=== PATIENT | female | born 1990 | race Caucasian/White ===

== ENCOUNTER 2016-09-01 13:15 | Emergency (ER) | payer OTHER ==
[2016-09-01 13:46] VITALS: BP 134/74
[2016-09-01] MEDS ORDERED: Albuterol/Ipratropium NEB.SOL* Albuterol 2.5 MG/Ipratropium 0.5 MG 3 ML INH ONE (14:13)
--- NOTE | 2016-09-01 14:14 | UC ---
Throat Pain/Nasal Derek HPI - HPI Summary HPI Summary: complaint of cough and runny nose that started 3 days ago non productive cough wheezing which is worse at night coughing so hard she has vomited 2x thinks she had a fever last night - denies chills sore throat ,headache denies N/D, using albuterol inhaler approx [id number] took some cherratussin last night with some relief - History of Current Complaint Chief Complaint: UCRespiratory Stated Complaint: COUGH Time Seen by Provider: 09/01/16 14:02 Hx Obtained From: Patient Hx Last Menstrual Period: 08/21/16 - Allergies/Home Medications Allergies/Adverse Reactions: Allergies Allergy/AdvReac Type Severity Reaction Status Date / Time No Known Allergies Allergy Verified 09/01/16 13:39 Home Medications: Home Medications Guaifenesin-Codeine [Cheratussin AC 100-10 mg/5Ml] 1 teasp PO PRN 09/01/16 [ History] PMH/Surg Hx/FS Hx/Imm Hx Previously Healthy: Yes Endocrine History Of: Denies: Diabetes, Thyroid Disease Cardiovascular History Of: Denies: Cardiac Disorders, Hypertension, Pacemaker/ICD, Myocardial Infarction , Congestive Heart Failure, Deep Vein Thrombosis Respiratory History Of: Reports: Asthma Denies: COPD, Pneumonia, Pulmonary Embolism GI/ History Of: Denies: Gastroesophageal Reflux, Ulcer, Renal Disease Neurological History Of: Denies: CVA, Dementia, Seizures Cancer History Of: Denies: Lung Cancer Other History Of: Negative For: Anticoagulant Therapy - Surgical History Surgical History: Yes Surgery Procedure, Year, and Place: c section 06/29/11 - Family History Known Family History: Positive: None, Hypertension - Social History Alcohol Use: None Substance Use Type: None Smoking Status (MU): Light Every Day Tobacco Smoker Type: Cigarettes Amount Used/How Often: 1/2 PPD Length of Time of Smoking/Using Tobacco: 6 YEARS Have You Smoked in the Last Year: No Household Exposure Type: Cigarettes Review of Systems Constitutional: Negative Skin: Negative Eyes: Negative ENT: Sore Throat, Nasal Discharge Respiratory: Cough Cardiovascular: Negative Gastrointestinal: Negative Genitourinary: Negative Motor: Negative Neurovascular: Negative Musculoskeletal: Negative Neurological: Negative Psychological: Negative All Other Systems Reviewed And Are Negative: Yes Physical Exam Triage Information Reviewed: Yes Appearance: No Pain Distress, Well-Nourished Vital Signs: Initial Vital Signs Temp 99.8 F 09/01/16 13:41 Pulse 109 09/01/16 13:41 Resp 20 09/01/16 13:41 BP 134/74 09/01/16 13:41 Pulse Ox 99 09/01/16 13:41 Vital Signs Reviewed: Yes Eyes: Positive: Conjunctiva Clear ENT: Positive: Pharyngeal erythema, Nasal congestion, Nasal drainage, TMs normal Neck: Positive: No Lymphadenopathy Respiratory: Positive: No respiratory distress, No accessory muscle use, Wheezing - throughout all lung owens Cardiovascular: Positive: No Murmur, Pulses Normal, Tachycardia Abdomen Description: Positive: Nontender, Soft Bowel Sounds: Positive: Present Musculoskeletal: Positive: No Edema Neurological: Positive: Alert Psychological Exam: Normal Skin Exam: Normal Re-Evaluation - Re-Evaluation First Eval Re-Evaluation Time: 14:42 Change: Improved - more air meovemnt throughout less wheezing Throat Pain/Nasal Course/Dx - Course Course Of Treatment: exam completed. wheezing throughout all lung owens. treat with duoneb - Differential Dx/Diagnosis Differential Diagnosis/HQI/PQRI: Influenza, Pharyngitis, Sinusitis, URI Provider Diagnoses: asthma exacerbation Discharge - Discharge Plan Condition: Stable Disposition: HOME Prescriptions: Albuterol HFA INHALER* [Ventolin HFA Inhaler*] 2 puff INH Q4H PRN #1 mdi PRN Reason: Wheezing Azithromycin TAB* [Zithromax TAB (Z-KADEN) 250 mg #6 tabs] 2 tab PO .TODAY, THEN 1 DAILY #1 kaden Guaifenesin-Codeine [Cheratussin AC] 10 ml PO BEDTIME #100 ml MDD 10 ml predniSONE TAB* [Deltasone TAB*] 50 mg PO DAILY #5 tab Patient Education Materials: Asthma (ED) Referrals: Nkechi Nugent MD [Primary Care Provider] - Additional Instructions: Please take antibiotic and prednisone as directed Use your albuterol inhaler every 4-6 hours when needed for wheezing, shortness of breath or uncontrolled coughing. Increase fluids and rest Take acetaminophen or ibuprofen for fever or pain Please review your discharge instructions. If your symptoms do not improve please call your primary care provider or return to urgent care.
== END 2016-09-01 15:40 | disposition home or self-care (01) ==
LOC: UCEAST 13:15
DX: J45.901 Unspecified asthma with (acute) exacerbation (principal); F17.210 Nicotine dependence, cigarettes, uncomplicated
CPT/HCPCS: 99212; A9270-GY; G0463

== ENCOUNTER 2016-10-06 11:34 | Emergency (ER) | payer OTHER ==
[2016-10-06] MEDS ORDERED: diPHENhydraMINE PO* 50 MG PO ONE (12:09)
--- NOTE | 2016-10-06 12:12 | ED ---
HPI Chest Pain - HPI Summary HPI Summary: 26F presents with anxiety since last night. She admits to chest pain and SOB. She states that she feels tingling in her upper extremities. She was diagnosed with pneumonia yesterday and was given dose of prednisone 60mg which patient states is large than has ever been given. She states she has a history of anxiety but has never had a panic attack. She states with her anxiety she always has a cause for it and that she can still perform her daily activities with it and once she takes care of the problem the anxiety resolves. She states she has no cause her anxiety currently. She denies any SI/HI. she is not on any control. She denies any pain or swelling in her calfs. She denies any history of DVTs or family history or recent travel. She is a nonsmoker. - History of Current Complaint Chief Complaint: EDGeneral Time Seen by Provider: 10/06/16 11:52 Pain Intensity: 0 - Allergy/Home Medications Allergies/Adverse Reactions: Allergies Allergy/AdvReac Type Severity Reaction Status Date / Time No Known Allergies Allergy Verified 10/06/16 11:35 PMH/Surg Hx/FS Hx/Imm Hx Endocrine/Hematology History: Denies: Hx Anticoagulant Therapy, Hx Diabetes, Hx Thyroid Disease Cardiovascular History: Denies: Hx Aneurysm, Hx Angina, Hx Angioplasty, Hx Atrial Fibrillation, Hx Auto Implanted Cardiovert Defib, Hx Cardiac Arrest, Hx Cardiomegaly, Hx Congenital Heart Disease, Hx Congestive Heart Failure, Hx Coronary Artery Disease, Hx Deep Vein Thrombosis, Hx Embolism, Hx Hypercholesterolemia, Hx Hypotension, Hx Hypertension, Hx Myocardial Infarction, Hx Pacemaker/ICD, Hx Peripheral Vascular Disease, Hx Rheumatic Fever, Hx Syncope, Hx Valvular Heart Disease, Other Cardiovascular Problems/Disorders Respiratory History: Reports: Hx Asthma, Other Respiratory Problems/Disorders - USES AND INHALER ON OCCASION Denies: Hx Bronchopulmonary Dysplasia, Hx Chronic Bronchitis, Hx Chronic Obstructive Pulmonary Disease (COPD), Hx Cystic Fibrosis, Hx Lung Cancer, Hx Pleural Effusion, Hx Pneumonia, Hx Pulmonary Edema, Hx Pulmonary Embolism, Hx Seasonal Allergies, Hx Sleep Apnea GI History: Denies: Hx Ulcer History: Denies: Hx Renal Disease Neurological History: Denies: Hx Dementia, Hx Seizures Psychiatric History: Denies: Hx Substance Abuse - Surgical History Surgery Procedure, Year, and Place: c section 06/29/11 Infectious Disease History: No Infectious Disease History: Denies: Hx Clostridium Difficile, Hx Hepatitis, Hx Human Immunodeficiency Virus (HIV), Hx of Known/Suspected MRSA, Hx Shingles, Hx Tuberculosis, History Other Infectious Disease, Traveled Outside the [place] in Last 30 Days - Family History Known Family History: Positive: None, Hypertension - Social History Alcohol Use: None Hx Substance Use: No Substance Use Type: Reports: None Smoking Status (MU): Light Every Day Tobacco Smoker Type: Cigarettes Amount Used/How Often: 1/2 PPD Length of Time of Smoking/Using Tobacco: 6 YEARS Have You Smoked in the Last Year: No Review of Systems Positive: Chest Pain Positive: Shortness Of Breath Negative: Abdominal Pain Positive: Other - tingling in extermities Negative: Headache All Other Systems Reviewed And Are Negative: Yes Physical Exam Triage Information Reviewed: Yes Vital Signs On Initial Exam: Initial Vitals Temp Pulse Resp BP Pulse Ox 96.0 F 106 20 129/83 99 10/06/16 11:35 10/06/16 11:35 10/06/16 11:35 10/06/16 11:35 10/06/16 11:35 Vital Signs Reviewed: Yes Appearance: Positive: Well-Appearing Skin: Positive: Warm, Dry Head/Face: Positive: Normal Head/Face Inspection Eyes: Positive: Normal, Conjunctiva Clear Respiratory/Lung Sounds: Positive: Breath Sounds Present, Other - consilodation present in right lower lung Cardiovascular: Positive: Normal, RRR Abdomen Description: Positive: Nontender, Soft Bowel Sounds: Positive: Present Neurological: Positive: Sensory/Motor Intact, Alert, Oriented to Person Place, Time, CN Intact II-III - Terrence Coma Scale Best Eye Response: 4 - Spontaneous Best Motor Response: 6 - Obeys Commands Best Verbal Response: 5 - Oriented Coma Scale Total: 15 Diagnostics - Vital Signs Vital Signs Temp Pulse Resp BP Pulse Ox 10/06/16 11:35 96.0 F 106 20 129/83 99 - Laboratory Result Diagrams: 10/06/16 12:18 10/06/16 12:18 Lab Statement: Any lab studies that have been ordered have been reviewed, and results considered in the medical decision making process. - EKG No standard instances Cardiac Rate: NL EKG Rhythm: Sinus Rhythm ST Segment: Normal Re-Evaluation - Re-Evaluation First Eval Change: Improved Comment: still feels heart racing but other symptoms resolved Chest Pain Course/Dx - Course Course Of Treatment: 26F presents with anxiety like symptoms. c/o of SOB, chest pain, and tingling in extremities. says that never had anxiety attack before. was dx with pneumonia yesterday and given 60 mg prednisone. labs and EKG normal. d-dimer normal. do still here some consildation on exam of lungs. gave bendaryl and patient says feels a better but still feels that heart is racing. states that has not been eatting well due to illness but has been drinking. vitals HR 90 discussed could be anxiety or dehydrated related. patient states that is able to drink so will have drink fluids oral. discussed since drove and patient wants something more can give ativan to go home with to split in half. told to stop prednisone and to continue bendaryl every 6 hours. told to follow up with primary. patient understands and agrees with plan - Chest Pain Differential Diagnosis/HQI/PQRI: Acute OK, Lower Respiratory Infection, Pulmonary Embolism, Other: - anxiety - Diagnoses Provider Diagnoses: Anxiety Discharge - Discharge Plan Condition: Good Disposition: HOME Patient Education Materials: Anxiety (ED) Referrals: Nkechi Nugent MD [Primary Care Provider] - Additional Instructions: Take half Ativan pill at home and can use other in 6 hours Continue Benadryl every 6 hours until symptoms resolve Stop taking prednisone Continue antibiotic Drink fluids as tolerated Follow up with primary care physician within 5 days Return to ED if develop suicidal or homicidal thoughts any new or worsening symptoms
[2016-10-06 12:30] VITALS: BP 119/81
[2016-10-06 12:30] LABS: Add Diff/Slide Review? Slide Review Added; Comments Flag Yes; Hematocrit 42 % (35-47); Hemoglobin 14.2 g/dl (12.0-16.0); Mean Corpuscular HGB Conc 34 g/dl (31-36); Mean Corpuscular Hemoglobin 31 pg (27-31); Mean Corpuscular Volume 93 fL (80-97); Mean Platelet Volume 9 um3 (7.4-10.4); Red Blood Count 4.54 10^6/ul (4.0-5.4); Red Cell Distribution Width 14 % (10.5-15); White Blood Count 3.4 10^3/ul (3.5-10.8)
[2016-10-06 12:50] LABS: Albumin 4.2 g/dL (3.2-5.2); BUN/Creatinine Ratio 26.2 (8-20); Calcium 9.4 mg/dL (8.6-10.3); EGFR African American 152.5 (>60); EGFR Non-African American 118.6 (>60); Globulin 2.7 g/dL (2-4); Potassium 3.4 mmol/L (3.5-5.0); Total Bilirubin 0.3 mg/dL (0.2-1.0); Total Protein 6.9 g/dL (6.4-8.9)
[2016-10-06] MEDS ORDERED: LORazepam TAB(*) 1 MG PO ONE ×2 (13:11→13:21)
== END 2016-10-06 13:28 | disposition home or self-care (01) ==
LOC: ED 11:34
DX: F41.9 Anxiety disorder, unspecified (principal); R06.02 Shortness of breath; R07.9 Chest pain, unspecified; F17.210 Nicotine dependence, cigarettes, uncomplicated
CPT/HCPCS: 36415; 80053; 84484; 85025; 85379; 93005; 99283; A9270-GY

== ENCOUNTER 2017-11-07 09:29 | Inpatient (IN) | payer OTHER ==
[2017-11-07] MEDS ORDERED: NS 0.9% 1000 ML* 1,000 ML IV ONE (09:31)
[2017-11-07] MEDS ORDERED: Alteplase* 50 MG VIAL IV ONE ×2 (10:01→10:02)
--- NOTE | 2017-11-07 10:02 | RAD ---
HISTORY: Neurological changes, code duvall, left-sided weakness, left-sided facial tingling COMPARISONS: August 21, 2013 TECHNIQUE: Multiple contiguous axial CT scans were obtained of the head without intravenous contrast. FINDINGS: HEMORRHAGE/INFARCT: There is no hemorrhage or acute infarct. MASSES/SHIFT: There is no mass or shift. EXTRA-AXIAL SPACES: There are no extra-axial fluid collections. SULCI AND VENTRICLES: The sulci and ventricles are normal in size and position for the patient's stated age. CEREBRUM: There are no focal parenchymal abnormalities. BRAINSTEM: There are no focal parenchymal abnormalities. CEREBELLUM: There are no focal parenchymal abnormalities. VESSELS: The vessels are grossly normal. PARANASAL SINUSES: The paranasal sinuses are clear. ORBITS: The orbits are unremarkable. BONES AND SOFT TISSUE: No bone or soft tissue abnormalities are noted. OTHER: None IMPRESSION: NO ACUTE INTRACRANIAL PATHOLOGY. PRELIMINARY FINDINGS WERE DISCUSSED WITH DR. KIRKLAND AT APPROXIMATELY 9:59 AM ON NOVEMBER 07, 2017.
[2017-11-07 10:10] LABS: ABS Basophils 0 10^3/ul (0-0.2); ABS Eosinophils 0.2 10^3/ul (0-0.6); ABS Lymphocytes 1.3 10^3/ul (1.0-4.8); ABS Monocytes 0.3 10^3/ul (0-0.8); ABS Nucleated RBC 0 10^3/ul; Eosinophil % 4.6 % (0-6); Hematocrit 41 % (35-47); Hemoglobin 14.1 g/dl (12.0-16.0); Lymphocyte % 27.2 % (25-47); Mean Corpuscular HGB Conc 34 g/dl (31-36); Mean Corpuscular Hemoglobin 33 pg (27-31); Mean Corpuscular Volume 96 fL (80-97); Mean Platelet Volume 8.1 um3 (7.4-10.4); Nucleated Red Blood Cells % 0.1; Platelet Count 180 10^3/ul (150-450); Red Blood Count 4.29 10^6/ul (4.0-5.4); Red Cell Distribution Width 13 % (10.5-15); White Blood Count 4.9 10^3/ul (3.5-10.8)
[2017-11-07 10:20] LABS: INR 0.85 (0.77-1.02)
[2017-11-07 10:33] LABS: EGFR Non-African American 115.5 (>60)
[2017-11-07] MEDS ORDERED: Iohexol 350* (CONTRAST) 500 ML MDV IV ONE (10:36)
[2017-11-07] MEDS ORDERED: LORazepam INJ* 2 MG/ML 1 ML VIAL IV ONE (10:40)
[2017-11-07 11:04] LABS: Urine Appearance Clear; Urine Blood Negative (Negative); Urine Color Straw; Urine Ketones Negative (Negative); Urine Protein Negative (Negative); Urine Specific Gravity 1.005 (1.010-1.030); Urine Urobilinogen Negative (Negative)
--- NOTE | 2017-11-07 11:11 | RAD ---
INDICATION: 27-year-old. Neurologic change. Code miller COMPARISON: Chest x-ray August 29, 2013 TECHNIQUE: An AP portable view obtained at 1050 hours is submitted. FINDINGS: Bones/Soft Tissues: There are no acute bony findings. Cardiomediastinal: The cardiomediastinal silhouette is normal. Lungs: There are no infiltrates. Pleura: There are no pleural effusions. Other: None IMPRESSION: NO ACTIVE DISEASE
--- NOTE | 2017-11-07 11:49 | RAD ---
HISTORY: Left face, leg weakness COMPARISONS: None TECHNIQUE: Multiple contiguous axial CT scans were obtained of the head and neck after the administration of nonionic intravenous contrast timed to the systemic arterial phase of contrast enhancement. Coronal and sagittal multiplanar reformations are submitted for review. Multiple 3-D maximum intensity projection reconstructions are also submitted for review. FINDINGS: Evaluation is somewhat limited by streak artifact from metallic jewelry in the patient's ears bilaterally. CTA NECK: AORTIC ARCH: There is a normal three-vessel branching pattern of the aortic arch. There is no ostial or proximal stenosis of the cephalic great vessels. RIGHT VERTEBRAL ARTERY: The right vertebral artery is patent along its course, without stenosis. LEFT VERTEBRAL ARTERY: The left vertebral artery is patent along its course, without stenosis. DOMINANCE: The vertebral arteries are codominant. RIGHT COMMON CAROTID ARTERY: The right common carotid artery is patent. The right carotid bifurcation occurs at C3-C4 RIGHT INTERNAL CAROTID ARTERY: There is no right internal carotid artery stenosis by NASCET criteria. RIGHT EXTERNAL CAROTID ARTERY: The right external carotid artery is unremarkable. LEFT COMMON CAROTID ARTERY: The left common carotid artery is patent. The left carotid bifurcation occurs at C3-C4 LEFT INTERNAL CAROTID ARTERY: There is no left internal carotid artery stenosis by NASCET criteria. LEFT EXTERNAL CAROTID ARTERY: The left external carotid artery is unremarkable. VENOUS CIRCULATION: The venous system is unremarkable. SALIVARY GLANDS: The parotid glands, submandibular glands, sublingual glands are normal. NASAL CAVITY/NASOPHARYNX: The nasal cavity and nasopharynx are normal. ORAL CAVITY/OROPHARYNX: The oral cavity is obscured by streak artifact from dental amalgam. The visualized oral cavity and oropharynx are unremarkable. LARYNGEAL APPARATUS/HYPOPHARYNX: The laryngeal apparatus and hypopharynx are normal. UPPER AIRWAY/UPPER ESOPHAGUS: The visualized upper airway and esophagus are normal. LUNG APICES: The lung apices are clear. THYROID GLAND: The thyroid gland is normal. LYMPH NODES: There is no lymphadenopathy by size criteria. BONES AND SOFT TISSUES: No bone or soft tissue abnormalities are noted. CTA HEAD: INTRACRANIAL CIRCULATION: There is a branch occlusion of an M3 branch of the right middle cerebral artery at the level of the precentral gyrus. Elsewhere, there is no aneurysm, vascular malformation, occlusion, or stenosis of the visualized intracranial circulation. The anterior communicating artery complex is clear. Bilateral posterior communicating arteries are identified. VENOUS CIRCULATION: The venous system is unremarkable. PERFUSION: There is hypoperfusion of the right posterior frontal lobe corresponding to the anterior branch occlusion including the right precentral gyrus. HEMORRHAGE/INFARCT: There is no hemorrhage or acute infarct. MASSES/SHIFT: There is no mass or shift. EXTRA-AXIAL SPACES: There are no extra-axial fluid collections. SULCI AND VENTRICLES: The sulci and ventricles are normal in size and position for the patient's stated age. CEREBRUM: There are no focal parenchymal abnormalities. BRAINSTEM: There are no focal parenchymal abnormalities. CEREBELLUM: There are no focal parenchymal abnormalities. PARANASAL SINUSES: There is mucosal thickening of the ethmoid air cells. ORBITS: The orbits are unremarkable. BONES AND SOFT TISSUE: No bone or soft tissue abnormalities are noted. OTHER: There is no abnormal enhancement. IMPRESSION: 1. 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 2. NO INTERNAL CAROTID ARTERY STENOSIS BY NASCET CRITERIA. 3. PRELIMINARY FINDINGS WERE DISCUSSED WITH DR. KIRKLAND IN THE EMERGENCY DEPARTMENT AT APPROXIMATELY 11:41 AM ON NOVEMBER 07, 2017 CPT II Codes: 3100F
[2017-11-07] MEDS ORDERED: Ondansetron INJ* 2 MG/ML VIAL IV ONE (12:02)
[2017-11-07] MEDS ORDERED: Morphine VIAL* 10 MG/ML 1 ML VIAL IV ONE (12:43)
[2017-11-07] MEDS ORDERED: Morphine VIAL* 4 MG/ML VIAL (1 ml vial) IV ONE (12:44)
[2017-11-07] MEDS ORDERED: Morphine INJ* 2 MG/ML 1 ML CARPUJECT IV ONE (13:18)
--- NOTE | 2017-11-07 13:39 | HP ---
H&P (Free Text) History and Physical: History and Physical - Critical Care Requesting Physician: Dr King Barrientos Reason for consult: CVA, post tpa Limitations in history/physical: none Date of consult: 11/07/2017 HPI: 27y F pmhx of Migraines; Woke up at ~8am this morning, feeling well. Shortly after developed headaches, some dizziness. She felt left arm was weak and numbness and could not move it. She felt she could not stand and even fell at home. She texted her sister, who then called and her sister noticed she had slurry speech. Family came to her home before 930 and noticed she could not stand and was not moving her left arm and her speech was slurred. EMS called, taken to ER. Found to have NIH score of 7. CT head STAT done not showing acute findings. CTA brain demonstrating Right middle cerebral artery occlusion at level of M3 with hypoperfusion of right posterior frontal lobe. Neurology was consulted. Patient was deemed a tPA candidate. [facility] was called and they recommended no intervention due to small distal clot. Patient was given tPA at ~1022. Currently she in bed, no distress. She is worried, has headaches. Current NSR 90s, BP 160/104. On RA, sat 99%. She has some dysarthria noted. Left upper extremity feels weak and numb still. Left leg feels heavy but able to move it more. No CP/SOB/n/v/abd pain. No blurry vision.She reports use of OCPs for months now. She also reports 1ppd smoking for years now. Social alcohol use. No prior medical problems. Taken medications for migraines, unclear at this time. No other cardiac problem in family. ED/floor Course: as above ROS: negative except for pertinent positives mentioned above. PMHx: Migraines PSHx: none Family History: Hypertension Social History: Alcohol-social, Smoking-1ppd for 6 years, Drug use-none; lives alone Allergies: NKDA Home Medications: Ascorbic Acid/Vitamin E/Biotin [Hair Skin Nails-Biotin Gummies] 1 tab PO DAILY 10/29/17 [History Confirmed 11/07/17] Norethindrone-E.estradiol-Iron [Blisovi Fe 1-20 Tablet] 1 tab PO DAILY 10/29/17 [History Confirmed 11/07/17] Tele: NSR Vitals: Vital Signs Temp 98.8 F 11/07/17 09:51 Pulse 97 11/07/17 13:34 Resp 25 11/07/17 13:34 BP 182/115 11/07/17 13:34 Pulse Ox 98 11/07/17 13:34 Intake & Output 11/06/17 11/07/17 11/07/17 18:59 06:59 18:59 Weight 125 lb O2/Vent: RA Infusions: heplock Current Medications: Atorvastatin Calcium (Lipitor*) 80 mg PO 1700 TAYLOR Nicardipine/Sodium Chloride (Cardene 0.1mg/Ml Ivpremix*) 20 mg in 200 mls @ 50 mls/hr IV .(as Initial Rate) TAYLOR; 5 MG/HR PRN Reason: Protocol Physical Exam: General: awake, alert, anxious, no diaphoresis Head: normocephalic, atraumatic HEENT: no pallor, no icterus, moist mucous membranes Neck: soft, supple, no jvd, no stridor CVS: normal rate, regular, no murmur Resp: bilateral air entry, no rhales, no wheeze, no rhonchi, no acc muscle use Abdomen: soft, nontender, nondistended, bowel sounds present Ext: pulses+, warm, no edema Skin: intact, no breakdown, no dryness Neuro: awake, alert, orientedx3, left lower facial droop+, left upper ext 1/5 strength, left lower ext unable to hold with gravity for long 4/5, left arm numbness, pupils bilaterally reactive Labs: Laboratory Results - last 24 hr 11/07/17 11/07/17 11/07/17 08:50 08:50 08:50 WBC 4.9 RBC 4.29 Hgb 14.1 Hct 41 MCV 96 MCH 33 H MCHC 34 RDW 13 Plt Count 180 MPV 8.1 Neut % (Auto) 61.4 Lymph % (Auto) 27.2 Cook % (Auto) 5.9 Eos % (Auto) 4.6 Baso % (Auto) 0.9 Absolute Neuts (auto) 3.0 Absolute Lymphs (auto) 1.3 Absolute Monos (auto) 0.3 Absolute Eos (auto) 0.2 Absolute Basos (auto) 0 Absolute Nucleated RBC 0 Nucleated RBC % 0.1 INR (Anticoag Therapy) 0.85 APTT 26.9 Sodium 140 Potassium 3.8 Chloride 111 Carbon Dioxide 22 Anion Gap 7 BUN 14 Creatinine 0.62 Est GFR ( Amer) 148.5 Est GFR (Non-Af Amer) 115.5 BUN/Creatinine Ratio 22.6 H Glucose 91 POC Glucose (mg/dL) Lactic Acid Calcium 8.9 Total Bilirubin 0.50 AST 21 ALT 22 Alkaline Phosphatase 62 Troponin I 0.00 Total Protein 6.4 Albumin 3.9 Globulin 2.5 Albumin/Globulin Ratio 1.6 Triglycerides 92 Cholesterol 182 LDL Cholesterol 112 HDL Cholesterol 51.3 Beta HCG, Quant < 0.60 Urine Color Urine Appearance Urine pH Ur Specific [place] Urine Protein Urine Ketones Urine Blood Urine Nitrate Urine Bilirubin Urine Urobilinogen Ur Leukocyte Esterase Urine Glucose Blood Type Antibody Screen 11/07/17 11/07/17 11/07/17 08:50 08:50 09:56 WBC RBC Hgb Hct MCV MCH MCHC RDW Plt Count MPV Neut % (Auto) Lymph % (Auto) Cook % (Auto) Eos % (Auto) Baso % (Auto) Absolute Neuts (auto) Absolute Lymphs (auto) Absolute Monos (auto) Absolute Eos (auto) Absolute Basos (auto) Absolute Nucleated RBC Nucleated RBC % INR (Anticoag Therapy) APTT Sodium Potassium Chloride Carbon Dioxide Anion Gap BUN Creatinine Est GFR ( Amer) Est GFR (Non-Af Amer) BUN/Creatinine Ratio Glucose POC Glucose (mg/dL) 105 H Lactic Acid 1.1 Calcium Total Bilirubin AST ALT Alkaline Phosphatase Troponin I Total Protein Albumin Globulin Albumin/Globulin Ratio Triglycerides Cholesterol LDL Cholesterol HDL Cholesterol Beta HCG, Quant Urine Color Urine Appearance Urine pH Ur Specific [place] Urine Protein Urine Ketones Urine Blood Urine Nitrate Urine Bilirubin Urine Urobilinogen Ur Leukocyte Esterase Urine Glucose Blood Type O Positive Antibody Screen Negative 11/07/17 10:48 WBC RBC Hgb Hct MCV MCH MCHC RDW Plt Count MPV Neut % (Auto) Lymph % (Auto) Cook % (Auto) Eos % (Auto) Baso % (Auto) Absolute Neuts (auto) Absolute Lymphs (auto) Absolute Monos (auto) Absolute Eos (auto) Absolute Basos (auto) Absolute Nucleated RBC Nucleated RBC % INR (Anticoag Therapy) APTT Sodium Potassium Chloride Carbon Dioxide Anion Gap BUN Creatinine Est GFR ( Amer) Est GFR (Non-Af Amer) BUN/Creatinine Ratio Glucose POC Glucose (mg/dL) Lactic Acid Calcium Total Bilirubin AST ALT Alkaline Phosphatase Troponin I Total Protein Albumin Globulin Albumin/Globulin Ratio Triglycerides Cholesterol LDL Cholesterol HDL Cholesterol Beta HCG, Quant Urine Color Straw Urine Appearance Clear Urine pH 7.0 Ur Specific [place] 1.005 L Urine Protein Negative Urine Ketones Negative Urine Blood Negative Urine Nitrate Negative Urine Bilirubin Negative Urine Urobilinogen Negative Ur Leukocyte Esterase Negative Urine Glucose Negative Blood Type Antibody Screen Imaging: CT brain 11/07 - reviewed CTA brain 11/07 - right M3 occlusion CXR 11/07 - no acute disease, cardiac silhouetter intact Assessment: 27y F pmhx of Migraines; Woke up at ~8am this morning, feeling well. Shortly after developed headaches, some dizziness. She felt left arm was weak and numbness and could not move it. She felt she could not stand and even fell at home. She texted her sister, who then called and her sister noticed she had slurry speech. Family came to her home before 930 and noticed she could not stand and was not moving her left arm and her speech was slurred. EMS called, taken to ER. Found to have NIH score of 7. CT head STAT done not showing acute findings. CTA brain demonstrating Right middle cerebral artery occlusion at level of M3 with hypoperfusion of right posterior frontal lobe. Neurology was consulted. Patient was deemed a tPA candidate. [facility] was called and they recommended no intervention due to small distal clot. Patient was given tPA at ~1022. -Right MCA Ischemic CVA, s/p tPA 11/07 history of OCP use tobacco abuse migraines Plan: Neuro- s/p tpa at 1022 for right MCA occlusion. bleeding precautions. neurochecks as per protocol. maintain SBP <180 and DBP <105, start nicardipine infusio 5mg/hr to meet goals. ASA to be started tomorrow >24 hours. Statin PO. Repeat CT brain in 24 hours or if any acute neuro status change. Bed rest. Swallow/speech eval in AM. Suspect etiology of CVA multifactorial from OCP use + smoking, r/o PFO, obtain LE duplex to r/o dvt. will ask her about cancer screening also. CVS- BP elevated post stroke, maintain post tpa guidlines for BP, goal <180/ 105. Start Cardene infusion. ASA tomorrow. Bleeding prec/monitoring. Resp- RA, no distress ID- afebrile. wbc normal. no abx indicated. GI- prn zofran for nausea. swallow eval in AM. Renal- Cr okay. K okay, no acidosis. Heme- hg okay. bleeding prec post tpa. ASA tomorrow. Endo- check hba1c in AM. Lipid panel reviewed. Musculsk- bedrest strict. Wounds- none Nutrition- swallow eval in AM. NPO for now. DVT prophylaxis: SCDs GI prophylaxis: - Central Line: - Arterial Line: - Guthrie Cathetor: - Disposition: ICU post tpa Code Status: full code Total Critical Care time is 60 minutes, excluding procedures/teaching Lars Garsia MD [employer] (Electronically Signed)
[2017-11-07] MEDS ORDERED: niCARdipine 0.1MG/ML IVPREMIX* 20 MG/200 ML BAG IV SCH (14:00)
[2017-11-07] MEDS ORDERED: PREMIX* 0 ML with Acetaminophen IV 1GM/100ML * 1,000 MG IVPB ONE ×2 (16:21)
[2017-11-07] MEDS ORDERED: ACETAMINOPHEN IVPB ONE ×2 (16:30)
--- NOTE | 2017-11-07 16:37 | RAD ---
INDICATION: CVA, evaluate for deep venous thrombosis. COMPARISON: There are no prior studies available for comparison. TECHNIQUE: Multiple real-time, color flow and Doppler tracings of both lower extremities were obtained. FINDINGS: The common femoral, femoral, profunda femoral and popliteal veins all demonstrate normal compressibility, augmentation with compression and phasic response with respiration. The posterior tibial and peroneal veins demonstrate normal compressibility and augmentation with compression. IMPRESSION: NO EVIDENCE FOR DEEP VENOUS THROMBOSIS.
--- NOTE | 2017-11-07 17:32 | ECHO ---
Patient: BANDAR ARMAS [facility] Rec#: [id number] : 1990 Date: 11/07/2017 Age: 27y Height: 162.56 cm / 64.0 in Weight: 56.7 kg / 125.0 lbs Sex: F BSA: 1.6 Room#: [facility] Admit Date#: 11/07/2017 Type: Inpatient Referring: Lars Garsia Reading: Paola Campo MD Innersole Maker: Kristie Rueda MANDA CC: Nkechi Nugent MD Transthoracic Echocardiogram Indication: CVA BP: 182/115 HR: 97 Rhythm: NSR Findings History: CVA, smoker. Technical Comments: The study quality is good. Completed at 1537. Left Ventricle: The left ventricular chamber size is normal. Septal wall hypertrophy is observed. The left ventricle appears hyperdynamic. The estimated ejection fraction is 60-65%. Normal left ventricular diastolic filling is observed. Left Atrium: The left atrial chamber size is normal. Right Ventricle: The right ventricular cavity size is normal. The right ventricular global systolic function is normal. Right Atrium: The right atrial cavity size is normal. A prominent eustachian valve is noted in the right atrium. A patent foramen ovale is demonstrated by agitated contrast. Negative contrast in right atrium, many bubbles cross into the left heart early after injection and persist in crossing. There is evidence of an atrial septal aneurysm. Aortic Valve: The aortic valve is trileaflet. There is no evidence of aortic valve thickening. There is no evidence of aortic regurgitation. There is no evidence of aortic stenosis. Mitral Valve: The mitral valve leaflets are mildly thickened. There is a trace of mitral regurgitation. There is no evidence of mitral stenosis. Tricuspid Valve: The tricuspid valve leaflets are normal. There is no evidence of tricuspid valve regurgitation. Unable to estimate the right ventricular systolic pressure. There is no tricuspid stenosis. Pulmonic Valve: The pulmonic valve appears normal. There is a trace pulmonic regurgitation. There is no pulmonic stenosis. Pericardium: The pericardium appears normal. Aorta: There is no dilatation of the ascending aorta. There is no dilatation of the aortic arch. There is no dilation of the aortic root. Pulmonary Artery: The main pulmonary artery appears normal. Venous: The inferior vena cava appears normal in size. There is a greater than 50% respiratory change in the inferior vena cava dimension. Contrast: Normal saline was used as contrast for the bubble study. Intravenous contrast was used to help determine presence of intracardiac shunting. Conclusions The left ventricle appears hyperdynamic with normal wall motion. The estimated ejection fraction is 60-65%. The right ventricular global systolic function is normal. A patent foramen ovale is demonstrated by agitated contrast with negative contrast in right atrium and many bubbles cross into the left atrlum early after injection and persist in crossing in the region of the foraman ovale. Aneurismal intra atrial septum and prominent Eustation valve noted as well. There is a trace of mitral regurgitation. No prior echo to compare. Measurements Name Value Normal Range RVIDd (AP) 2D 2.2 cm (0.9 - 2.6) RVDdMajor (2D) 2.8 cm (2.2 - 4.4) RAd ISD 4CH 3.7 cm (3.4 - 4.9) RA (A4C)W 2.9 cm (2.9 - 4.6) IVSd (2D) 1.2 cm (0.6 - 1) LVPWd (2D) 0.9 cm (0.6 - 1) LVIDd (2D) 3.7 cm (3.6 - 5.4) LVIDs (2D) 2.9 cm - LV FS (2D) 22 % (25 - 45) Aortic Annulus 1.7 cm (1.4 - 2.6) Ao root diameter (2D) 2.7 cm (2.1 - 3.5) Ascending Ao 2.7 cm (2.1 - 3.4) Aortic arch 1.7 cm (1.8 - 3.4) Descending Ao 1.2 cm - LA dimension (AP) 2D 3 cm (2.3 - 3.8) LAd ISD 4CH 4.1 cm (2.9 - 5.3) LA ISD 4CH W 3.1 cm (2.5 - 4.5) Name Value Normal Range LA ESV SP 4CH (A/L) 21 ml - LA ESV SP 2CH (A/L) 62 ml - LA ESV BP (A/L) 39 ml - LA ESV BP (A/L) index 24.64 ml/m2 - LA ESV SP 4CH (MOD) 19 ml - LA ESV SP 2CH (MOD) 55 ml - Name Value Normal Range MV E-wave Vmax 1.2 m/sec - MV deceleration time 107 msec - MV A-wave Vmax 0.9 m/sec - MV E:A ratio 1.3 ratio - LV septal e' Vmax 0.12 m/sec - LV lateral e' Vmax 0.19 m/sec - LV E:e' septal ratio 10 ratio - LV E:e' lateral ratio 6.31 ratio - Name Value Normal Range AV Vmax 1.8 m/sec - AV VTI 31.4 cm - AV peak gradient 21.65 mmHg - AV mean gradient 6.29 mmHg - LVOT Vmax 1.2 m/sec - LVOT VTI 23.6 cm - LVOT peak gradient 5.82 mmHg - LVOT mean gradient 2.41 mmHg - Name Value Normal Range IVC diameter 1.2 cm - Name Value Normal Range PV Vmax 1.3 m/sec - PV peak gradient 7.19 mmHg -
[2017-11-07] MEDS ORDERED: Acetaminophen IV 1GM/100ML * 100 ML ONE (18:07)
[2017-11-07 18:17] VITALS: BP 120/78
--- NOTE | 2017-11-07 18:17 | RAD ---
INDICATION: CVA. COMPARISON: Correlation is made with a prior CT of the brain and CT angiogram of the head and neck from November 07, 2017. TECHNIQUE: Sagittal T1, axial T1, T2, susceptibility, FLAIR and diffusion weighted images were obtained. FINDINGS: The ventricles, cisterns and sulci appear to be within normal limits. There is mild increased signal intensity present within the cortex and subcortical white matter on T2-weighted images in the right temporal lobe. There is an area of larger restricted diffusion involving a moderate size area of the right temporal lobe extending into the adjacent parietal lobe. No significant mass effect is seen. No hemorrhage is seen. The visualized portion of the paranasal sinuses and mastoid air cells appear clear.. The results of this exam were called to the referring clinician. IMPRESSION: FINDINGS MOST CONSISTENT WITH AN ACUTE NONHEMORRHAGIC RIGHT MIDDLE CEREBRAL ARTERY INFARCT DESCRIBED.
--- NOTE | 2017-11-07 18:35 | PN ---
Progress Note - Progress Note Date of Service: 11/07/17 Note: On Nicardipine, BP down to 140s and drip stopped. Has remained in 130-140 range now, tachycardic 110s sinus. Awake, anxious. headache+ Still has left arm 0/5 with only mild finger movement only. Left leg 4/5 strength persistent left lower facial droop dysarthria+ no resp distress otherwise MRI brain with right nonhemorrhagic infarct in temporal lobe extending to parietal lobe with mild cortical edema and no shift. ECHO results with positive bubble study and right to left movement of agitated saline in under 5 beats; consistent with a PFO/ASD. LV function intact. No visualized vegetations on TTE. LE duplex negative for DVT. she is s/p tPA, no bleeding noted. No improvement in symptoms yet but according to neurologist examination seems worse than when he saw her. She may be slightly worse than my original examination when I saw her within 2 hours post tPA. Discussion with patient and friends at bedside. Discussion with [facility] neurologist. Decision was to transfer patient for further possible neurointerventional assessment if worsening symptoms and even PFO closure at some point when bleeding risk lower. We now know her RF are elevated given history of OCP use, Tobacco use, and now Atrial septal defect/ PFO being found. Patient to be transferred to [facility] . Lars Garsia MD [employer]
--- NOTE | 2017-11-07 19:54 | ED ---
Bette Everett Gabriel, scribed for King Kirkland MD on 11/07/17 at 1007 . Neurological HPI - HPI Summary HPI Summary: This patient is a 27 year old F BIBA to [facility] with a chief complaint of a possible CVA that began at 0830, 1 hour [employer]LE[employer]. Patient reports left sided weakness , anxiety, and left sided decreased facial sensitivity. Patient denies MURILLO. Pt is a smoker - History of Current Complaint Chief Complaint: EDNeurologicalDeficit Stated Complaint: CODE MARINO Time Seen by Provider: 11/07/17 09:31 Hx Obtained From: Patient Hx Last Menstrual Period: 2 wks ago Onset/Duration: Still Present Timing: Constant Onset Severity: Moderate Current Severity: Moderate Neurological Deficit Location: Facial, LUE, LLE Pain Intensity: 0 Pain Scale Used: 0-10 Numeric Associated Signs and Symptoms: Positive: Weakness. Negative: Headache - Allergy/Home Medications Allergies/Adverse Reactions: Allergies Allergy/AdvReac Type Severity Reaction Status Date / Time No Known Allergies Allergy Verified 10/29/17 16:35 PMH/Surg Hx/FS Hx/Imm Hx Endocrine/Hematology History: Denies: Hx Anticoagulant Therapy, Hx Diabetes, Hx Thyroid Disease Cardiovascular History: Denies: Hx Aneurysm, Hx Angina, Hx Angioplasty, Hx Atrial Fibrillation, Hx Auto Implanted Cardiovert Defib, Hx Cardiac Arrest, Hx Cardiomegaly, Hx Congenital Heart Disease, Hx Congestive Heart Failure, Hx Coronary Artery Disease, Hx Deep Vein Thrombosis, Hx Embolism, Hx Hypercholesterolemia, Hx Hypotension, Hx Hypertension, Hx Myocardial Infarction, Hx Pacemaker/ICD, Hx Peripheral Vascular Disease, Hx Rheumatic Fever, Hx Syncope, Hx Valvular Heart Disease, Other Cardiovascular Problems/Disorders Respiratory History: Reports: Hx Asthma, Other Respiratory Problems/Disorders - USES AND INHALER ON OCCASION Denies: Hx Bronchopulmonary Dysplasia, Hx Chronic Bronchitis, Hx Chronic Obstructive Pulmonary Disease (COPD), Hx Cystic Fibrosis, Hx Lung Cancer, Hx Pleural Effusion, Hx Pneumonia, Hx Pulmonary Edema, Hx Pulmonary Embolism, Hx Seasonal Allergies, Hx Sleep Apnea GI History: Denies: Hx Ulcer History: Denies: Hx Renal Disease Neurological History: Denies: Hx Dementia, Hx Seizures Psychiatric History: Denies: Hx Substance Abuse - Surgical History Surgery Procedure, Year, and Place: C section 06/29/11 Infectious Disease History: No Infectious Disease History: Denies: Hx Clostridium Difficile, Hx Hepatitis, Hx Human Immunodeficiency Virus (HIV), Hx of Known/Suspected MRSA, Hx Shingles, Hx Tuberculosis, History Other Infectious Disease, Traveled Outside the [place] in Last 30 Days - Family History Known Family History: Positive: None, Hypertension - Social History Alcohol Use: Rare Hx Substance Use: No Substance Use Type: Reports: None Smoking Status (MU): Light Every Day Tobacco Smoker Type: Cigarettes Amount Used/How Often: 1/2 PPD Length of Time of Smoking/Using Tobacco: 6 YEARS Have You Smoked in the Last Year: No Review of Systems Neurological: Other - left sided decreased facial sensitivity. Positive: Weakness. Negative: Headache Positive: Anxious All Other Systems Reviewed And Are Negative: Yes Physical Exam - Summary Physical Exam Summary: General: well-appearing, no pain distress Skin: warm, color reflects adequate perfusion, dry Head: normal Eyes: EOMI, ORTIZ ENT: normal Neck: supple, nontender Respiratory: CTA, breath sounds present Cardiovascular: RRR Abdomen: soft, nontender Bowel: present Musculoskeletal: normal, strength/ROM intact Psychological: affect/mood appropriate Triage Information Reviewed: Yes Vital Signs On Initial Exam: Initial Vitals Temp Pulse Resp BP Pulse Ox 98.8 F 91 40 141/90 98 11/07/17 09:51 11/07/17 09:51 11/07/17 09:51 11/07/17 09:51 11/07/17 09:51 Vital Signs Reviewed: Yes Diagnostics - Vital Signs Vital Signs Temp Pulse Resp BP Pulse Ox 11/07/17 09:51 98.8 F 91 40 141/90 98 - Laboratory Lab Results: Lab Results 11/07/17 11/07/17 11/07/17 Range/Units 08:50 08:50 08:50 WBC 4.9 (3.5-10.8) 10^3/ul RBC 4.29 (4.0-5.4) 10^6/ul Hgb 14.1 (12.0-16.0) g/dl Hct 41 (35-47) % MCV 96 (80-97) fL MCH 33 H (27-31) pg MCHC 34 (31-36) g/dl RDW 13 (10.5-15) % Plt Count 180 (150-450) 10^3/ul MPV 8.1 (7.4-10.4) um3 Neut % (Auto) 61.4 (38-83) % Lymph % (Auto) 27.2 (25-47) % [place] % (Auto) 5.9 (0-7) % Eos % (Auto) 4.6 (0-6) % Baso % (Auto) 0.9 (0-2) % Absolute Neuts (auto) 3.0 (1.5-7.7) 10^3/ul Absolute Lymphs (auto) 1.3 (1.0-4.8) 10^3/ul Absolute Monos (auto) 0.3 (0-0.8) 10^3/ul Absolute Eos (auto) 0.2 (0-0.6) 10^3/ul Absolute Basos (auto) 0 (0-0.2) 10^3/ul Absolute Nucleated RBC 0 10^3/ul Nucleated RBC % 0.1 INR (Anticoag Therapy) 0.85 (0.77-1.02) APTT 26.9 (26.0-36.3) seconds Sodium 140 (139-145) mmol/L Potassium 3.8 (3.5-5.0) mmol/L Chloride 111 (101-111) mmol/L Carbon Dioxide 22 (22-32) mmol/L Anion Gap 7 (2-11) mmol/L BUN 14 (6-24) mg/dL Creatinine 0.62 (0.51-0.95) mg/dL Est GFR ( Amer) 148.5 (>60) Est GFR (Non-Af Amer) 115.5 (>60) BUN/Creatinine Ratio 22.6 H (8-20) Glucose 91 (70-100) mg/dL POC Glucose (mg/dL) (70-100) mg/dL Lactic Acid (0.5-2.0) mmol/L Calcium 8.9 (8.6-10.3) mg/dL Total Bilirubin 0.50 (0.2-1.0) mg/dL AST 21 (13-39) U/L ALT 22 (7-52) U/L Alkaline Phosphatase 62 (34-104) U/L Troponin I 0.00 (<0.04) ng/mL Total Protein 6.4 (6.4-8.9) g/dL Albumin 3.9 (3.2-5.2) g/dL Globulin 2.5 (2-4) g/dL Albumin/Globulin Ratio 1.6 (1-3) Triglycerides 92 mg/dL Cholesterol 182 mg/dL LDL Cholesterol 112 mg/dL HDL Cholesterol 51.3 mg/dL Beta HCG, Quant < 0.60 mIU/mL Urine Color Urine Appearance Urine pH (5-9) Ur Specific [place] (1.010-1.030) Urine Protein (Negative) Urine Ketones (Negative) Urine Blood (Negative) Urine Nitrate (Negative) Urine Bilirubin (Negative) Urine Urobilinogen (Negative) Ur Leukocyte Esterase (Negative) Urine Glucose (Negative) Blood Type Antibody Screen 11/07/17 11/07/17 11/07/17 Range/Units 08:50 08:50 09:56 WBC (3.5-10.8) 10^3/ul RBC (4.0-5.4) 10^6/ul Hgb (12.0-16.0) g/dl Hct (35-47) % MCV (80-97) fL MCH (27-31) pg MCHC (31-36) g/dl RDW (10.5-15) % Plt Count (150-450) 10^3/ul MPV (7.4-10.4) um3 Neut % (Auto) (38-83) % Lymph % (Auto) (25-47) % [place] % (Auto) (0-7) % Eos % (Auto) (0-6) % Baso % (Auto) (0-2) % Absolute Neuts (auto) (1.5-7.7) 10^3/ul Absolute Lymphs (auto) (1.0-4.8) 10^3/ul Absolute Monos (auto) (0-0.8) 10^3/ul Absolute Eos (auto) (0-0.6) 10^3/ul Absolute Basos (auto) (0-0.2) 10^3/ul Absolute Nucleated RBC 10^3/ul Nucleated RBC % INR (Anticoag Therapy) (0.77-1.02) APTT (26.0-36.3) seconds Sodium (139-145) mmol/L Potassium (3.5-5.0) mmol/L Chloride (101-111) mmol/L Carbon Dioxide (22-32) mmol/L Anion Gap (2-11) mmol/L BUN (6-24) mg/dL Creatinine (0.51-0.95) mg/dL Est GFR ( Amer) (>60) Est GFR (Non-Af Amer) (>60) BUN/Creatinine Ratio (8-20) Glucose (70-100) mg/dL POC Glucose (mg/dL) 105 H (70-100) mg/dL Lactic Acid 1.1 (0.5-2.0) mmol/L Calcium (8.6-10.3) mg/dL Total Bilirubin (0.2-1.0) mg/dL AST (13-39) U/L ALT (7-52) U/L Alkaline Phosphatase (34-104) U/L Troponin I (<0.04) ng/mL Total Protein (6.4-8.9) g/dL Albumin (3.2-5.2) g/dL Globulin (2-4) g/dL Albumin/Globulin Ratio (1-3) Triglycerides mg/dL Cholesterol mg/dL LDL Cholesterol mg/dL HDL Cholesterol mg/dL Beta HCG, Quant mIU/mL Urine Color Urine Appearance Urine pH (5-9) Ur Specific [place] (1.010-1.030) Urine Protein (Negative) Urine Ketones (Negative) Urine Blood (Negative) Urine Nitrate (Negative) Urine Bilirubin (Negative) Urine Urobilinogen (Negative) Ur Leukocyte Esterase (Negative) Urine Glucose (Negative) Blood Type O Positive Antibody Screen Negative 11/07/17 Range/Units 10:48 WBC (3.5-10.8) 10^3/ul RBC (4.0-5.4) 10^6/ul Hgb (12.0-16.0) g/dl Hct (35-47) % MCV (80-97) fL MCH (27-31) pg MCHC (31-36) g/dl RDW (10.5-15) % Plt Count (150-450) 10^3/ul MPV (7.4-10.4) um3 Neut % (Auto) (38-83) % Lymph % (Auto) (25-47) % [place] % (Auto) (0-7) % Eos % (Auto) (0-6) % Baso % (Auto) (0-2) % Absolute Neuts (auto) (1.5-7.7) 10^3/ul Absolute Lymphs (auto) (1.0-4.8) 10^3/ul Absolute Monos (auto) (0-0.8) 10^3/ul Absolute Eos (auto) (0-0.6) 10^3/ul Absolute Basos (auto) (0-0.2) 10^3/ul Absolute Nucleated RBC 10^3/ul Nucleated RBC % INR (Anticoag Therapy) (0.77-1.02) APTT (26.0-36.3) seconds Sodium (139-145) mmol/L Potassium (3.5-5.0) mmol/L Chloride (101-111) mmol/L Carbon Dioxide (22-32) mmol/L Anion Gap (2-11) mmol/L BUN (6-24) mg/dL Creatinine (0.51-0.95) mg/dL Est GFR ( Amer) (>60) Est GFR (Non-Af Amer) (>60) BUN/Creatinine Ratio (8-20) Glucose (70-100) mg/dL POC Glucose (mg/dL) (70-100) mg/dL Lactic Acid (0.5-2.0) mmol/L Calcium (8.6-10.3) mg/dL Total Bilirubin (0.2-1.0) mg/dL AST (13-39) U/L ALT (7-52) U/L Alkaline Phosphatase (34-104) U/L Troponin I (<0.04) ng/mL Total Protein (6.4-8.9) g/dL Albumin (3.2-5.2) g/dL Globulin (2-4) g/dL Albumin/Globulin Ratio (1-3) Triglycerides mg/dL Cholesterol mg/dL LDL Cholesterol mg/dL HDL Cholesterol mg/dL Beta HCG, Quant mIU/mL Urine Color Straw Urine Appearance Clear Urine pH 7.0 (5-9) Ur Specific [place] 1.005 L (1.010-1.030) Urine Protein Negative (Negative) Urine Ketones Negative (Negative) Urine Blood Negative (Negative) Urine Nitrate Negative (Negative) Urine Bilirubin Negative (Negative) Urine Urobilinogen Negative (Negative) Ur Leukocyte Esterase Negative (Negative) Urine Glucose Negative (Negative) Blood Type Antibody Screen Result Diagrams: 11/07/17 08:50 11/07/17 08:50 Lab Statement: Any lab studies that have been ordered have been reviewed, and results considered in the medical decision making process. - Radiology CXR Radiology Interpretation Completed By: Radiologist - no active disease. ED physician has reviewed this report. - CT CT Brain CT Interpretation Completed By: Radiologist - NO ACUTE INTRACRANIAL PATHOLOGY. ED physician has reviewed this radiology report. CTA Brain CT Interpretation Completed By: Radiologist - 1. 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 2. NO INTERNAL CAROTID ARTERY STENOSIS BY NASCET CRITERIA. 3. PRELIMINARY FINDINGS WERE DISCUSSED WITH DR. KIRKLAND IN THE EMERGENCY DEPARTMENT AT APPROXIMATELY 11:41 AM ON NOVEMBER 07, 2017 CPT II Codes: 3100F ED physician has reviewed this radiology report. - EKG 1004 Cardiac Rate: NL EKG Rhythm: Sinus Rhythm - at [address] Segment: Normal Ectopy: None NIH Scale - NIH Scale Level of Consciousness: Alert/Keenly Responsive Ask Patient the Month and His/Her Age: Both Correct Ask Pt to Open/Close Eyes and Mini Bar Attendant/Release Non-Paretic Hand: Both Correctly Best Gaze (Only Horizontal Eye Movement): Normal Visual Field Testing: No Visual Loss Facial Paresis-Pt to Smile & Close Eyes or Grimace Symmetry: Minor Paralysis Motor Function - Right Arm: No Effort Against [place] Motor Function - Left Arm: No Drift-Holds 10 Seconds Motor Function - Right Leg: No Drift-Holds 10 Seconds Motor Function - Left Leg: Drifts LT 10 seconds Limb Ataxia-Must be out of Proportion to Weakness Present: Present in One Limb Sensory (Use Pinprick to Test Arms/Legs/Trunk/Face): Pinprick Less on Affected Best Language (Describe Picture, Name Items): No Aphasia Dysarthria (Read Several Words): Normal Extinction and Inattention: No Abnormality Total Score: 7 Course/Dx - Course Course Of Treatment: DR CANALES SAW PATIENT IN THE ED. TPA GIVEN. DISCUSSED WITH DR GARSIA, ICU. ADMIT ICU. - Diagnoses Provider Diagnoses: CVA (cerebral vascular accident) - Physician Notifications Discussed Care Of Patient With: Lars Garsia Time Discussed With Above Provider: 12:07 Instructed by Provider To: Admit As Inpatient - Critical Care Time Critical Care Time: 30-74 min Discharge - Sign-Out/Discharge Documenting (check all that apply): Discharge - Discharge Plan Condition: Stable Disposition: ADMITTED TO [facility] - Billing Disposition and Condition Condition: STABLE Disposition: [facility] [place] Consult: 930 We discussed patient care with Dr. Canales and they recommended ordering a test and he will come see the patient [phone] After an evaluation of the patient Dr. Canales recommends TPA due a history of tunnel visional and trouble speaking in past. He recommends a CTA post TPA and spoke to the patients PCP. The documentation as recorded by the Bette david Gabriel accurately reflects the service I personally performed and the decisions made by me, King Kirkland MD.
--- NOTE | 2017-11-07 21:34 | CONS ---
CONSULTATION REPORT: DATE OF CONSULT: 11/07/17 PATIENT OF: Dr. Garsia. HISTORY OF PRESENT ILLNESS: This is a 27-year-old left-handed woman who I saw initially shortly after presentation to the emergency room. She notes that at 8 :30 while smoking she developed left arm and face numbness and developed weakness of the left arm and had trouble standing and could fall when I saw her in the emergency room. Initially, she had no headache and had not had headache that day. She had a past history of migraines in the past. I had spoken to Dr. Nugent and that was not on her listed medical problems, but there was a history of 2 or 3 episodes of visual disturbance and speech disturbance not associated with headache, and she had been referred to a neurologist, but had never seen one. She had initial CT scan, which was negative and because of her NIH Stroke Scale of 7, and she was well within the timeframe, TPA was given. She had no headache at that time. Concern was that this could be a hemiplegic migraine, but without headache, and with these symptoms and with her risk factors of 1 pack a day of smoking and being on an estrogen containing control pill, the decision was made to give TPA. Following the TPA, a CTA was obtained, which showed an M3 occlusion. [facility] was contacted. At that point , her arm strength had improved and her NIH stroke scale was 4. [facility] reviewed the CTA, thought that there was no significant occlusion and there was no intervention that they would do. This was not [facility], but [facility]. PAST MEDICAL HISTORY: She has a history of panic attacks, worse with steroids and has seen Dr. Nugent in her office on 2 separate occasions. PAST SURGICAL HISTORY: She has had no surgeries. 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 DIRECTOR RISK HISTORY: Her last period was a month ago. FAMILY HISTORY: There is no family history for stroke. SOCIAL HISTORY: She smokes. She has had at least a several-month history of OCD. She smoked 1 pack of cigarettes a day for years. Denied drugs, some social alcohol use. PHYSICAL EXAM: On exam, temperature was 98.8, apparently it is 101.8, pulse was 91, respirations 25, blood pressure 154/120. She was alert and oriented with normal speech and comprehension. Cranial nerves II through XII showed mild left facial weakness with some left facial numbness. Disks were sharp. Rest of the cranial nerves were normal. Motor exam had mild left handgrip on the left, but did not initially hold against gravity following the TPA. She was able to keep her hand up against gravity with some slight resistance that was after the CTA came back. Currently, she has no strength against gravity in left side. She still moves her left leg with full power. Reflexes were 1 and equal. Toes were downgoing. Chest: Clear. Cardiovascular: Regular rate and rhythm. Abdomen: Soft with positive bowel sounds. DIAGNOSTIC STUDIES/LAB DATA: The CT scan was normal. I reviewed the CTA, showed a branch occlusion of the right middle cerebral artery at the M3 segment. Venous Doppler is pending. CBC was normal. Normal INR and PTT. Normal CMP. LDL was 112. Beta hCG was less than 0.6. Transthoracic echo has been ordered. IMPRESSION AND PLAN: She has a throbbing headache without nausea now, that is in her right adventism. This is different than before. This is possible that this could be secondary to the stroke or it is possible that this is a part of a hemiplegic migraine with headache appearing after the initial hemiparesis and headache began to be present at about 11:40 noon, the time when I was seeing her , but not at the time the TPA was given. Given the fluctuation of her status, I am going to be obtaining an MRI scan today, and I will be speaking with Dr. Garsia about the treatment of headache. One option would be to give steroids, but this has caused panic attacks in the past. Other options would be to load her with Depakote. I will discuss the steroid option first and will be getting an MRI scan as well. Thank you for sharing her case. [id number]/[facility] #: [id number] RUBI
--- NOTE | 2017-11-07 23:24 | PN ---
NEUROLOGICAL FOLLOWUP: DATE OF SERVICE: 11/07/17 SUBJECTIVE: I have spoken to Dr. Mckeon again regarding her temperature. We have given IV Tylenol, but to see if he had any further thoughts since it is unusual. He did not at this point, and just wanted to have her transferred to [place] at this point and I have discussed further with family. [id number]/[facility] #: [id number] RUBI
--- NOTE | 2017-11-07 23:41 | PN ---
NEUROLOGICAL FOLLOWUP NOTE: DATE OF VISIT: 11/07/17 PATIENT OF: , Dr. Nugent. HISTORY: This is a neurological followup. We ordered an urgent MRI scan. I called down and had them do it as the next patient. The MRI scan, I read it while she was on the table as a partial right MCA stroke without hemorrhage and the radiologist has since read it while I was in the scanner. We contacted Dr. Mckeon and discussed the case with him. The echo is now back showing a significant PFO with many bubbles crossing to left atrium early after injection and persisting crossing the region of the foramen ovale. 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 Her venous Doppler was negative. Her exam has further changed. There is more of a left facial droop and there is slight slurring of her speech. Her left arm shows no strength against gravity and there is 4/5 strength in the left leg. She continues to have numbness. There is no visual field cut or loss. Her speech is fluent, but slightly slurred. I discussed her clinical changes with Dr. Mckeon and because they have things to specifically offer such as PFO closer if need be and because she is clinically changing for the worse, I discussed the reasons for the transfer with the family. Also if there is clot propagation, we may need to reassess whether there is potential for clot retrieval, it was not thought to be a possibility earlier on today after the first CT scan. Also of note, her temperature is 102.2 now and I will discuss this with Dr. Mckeon. Thank you for sharing her case. [id number]/[facility] #: [id number] RUBI
[2017-11-08] MEDS ORDERED: Atorvastatin* 80 MG TAB PO SCH (17:00)
== END 2017-11-07 19:00 | disposition short-term general hospital (02) | DRG 45 ==
LOC: ED 09:29 → ICU 13:21
PROVIDERS: ADMIT Internal Medicine Critical Care Medicine; ATTEND Internal Medicine Critical Care Medicine
DX: I63.511 Cerebral infarction due to unspecified occlusion or stenosis of right middle cerebral artery (principal); G93.6 Cerebral edema; G81.94 Hemiplegia, unspecified affecting left nondominant side; Q21.1 Atrial septal defect; G43.909 Migraine, unspecified, not intractable, without status migrainosus; W19.XXXA Unspecified fall, initial encounter; R29.707 NIHSS score 7; R47.1 Dysarthria and anarthria; F17.210 Nicotine dependence, cigarettes, uncomplicated; R47.81 Slurred speech; R03.0 Elevated blood-pressure reading, without diagnosis of hypertension; R11.0 Nausea; F41.9 Anxiety disorder, unspecified; J45.909 Unspecified asthma, uncomplicated; R29.810 Facial weakness; R50.9 Fever, unspecified; R00.0 Tachycardia, unspecified; Y92.009 Unspecified place in unspecified non-institutional (private) residence as the place of occurrence of the external cause; Z72.89 Other problems related to lifestyle; Z82.49 Family history of ischemic heart disease and other diseases of the circulatory system
CPT/HCPCS: 36415; 70450; 70496; 70498; 70551; 71045; 80053; 80061; 81003; 83605; 84484; 84702; 85025; 85610; 85730; 86850; 86900; 86901; 87641; 93005; 93306; 93970; 99285; J2060; J2270; J2405; J2997; Q9967

== ENCOUNTER 2017-11-14 07:23 | Inpatient (IN) | payer OTHER ==
[2017-11-14] MEDS ORDERED: Magnesium Hydroxide LIQ* 30 ML UDC PO PRN (14:50)
[2017-11-14] MEDS ORDERED: Senna TAB PO PRN (14:50)
[2017-11-14] MEDS ORDERED: Acetaminophen TAB* 325 MG PO PRN (14:50)
[2017-11-14] MEDS: Enoxaparin(*) 40 MG/0.4 ML SYR SUBCUT SCH (21:16)
[2017-11-14] MEDS: Docusate CAP* 100 MG PO SCH (21:17)
--- NOTE | 2017-11-14 21:26 | HP ---
ADMISSION HISTORY AND PHYSICAL: DATE OF ADMISSION: 11/14/17 REASON FOR ADMISSION: Right-sided CVA with left-sided weakness. HISTORY OF PRESENT ILLNESS: Daphney Sherwood is a 27-year-old female. She has little in the way of past medical history outside of migraine headaches. On , the patient woke up, felt well, but shortly after developed headaches and some dizziness and then felt like her left arm was weak and she could not move it. She was having trouble standing on her left leg. She called her sister who noticed she was having slurred speech. The family came to her house. EMS was called and she was taken to the emergency room. A Code Briggs was called. She had a CAT scan of her head showing no acute findings. A CTA of the brain showed a right middle cerebral artery occlusion at the level of M3 with hypoperfusion of the right posterior frontal lobe. The patient was given TPA. The patient was then transferred to the [facility]. The patient was admitted to the stroke service. Telemetry did not reveal underlying atrial fibrillation. The patient did have a followup CAT scan of her head that showed expected evolution of right middle cerebral artery infarct , but no hemorrhagic transformation. She had a transesophageal echo on showing a small patent foramen ovale. Prozac 20 mg daily was started for motor recovery. While she was sedated for her transesophageal echo, she had an IUD placed as the patient was on oral contraceptives prior to that. The patient was felt to have physical therapy and occupational therapy needs. She is now being admitted for inpatient rehab so that she might return to independent living. PAST MEDICAL HISTORY: Significant for migraine headaches. MEDICATIONS: Prior to admission, the patient was on: 1. Oral contraceptives. 2. Biotin vitamin gummies. ALLERGIES: The patient has no known drug allergies. SOCIAL HISTORY: She was a pack a day smoker. Drank a few times a week. She lives alone with her daughter in a double wide trailer. There are 3 steps and then 4 steps to enter the trailer. She is involved with a significant other. Her daughter is 6 and goes to the [employer]. She lives in [place]. The daughter is currently staying with the daughter's father. REVIEW OF SYSTEMS: The patient reports no current shortness of breath or chest pain. PHYSICAL EXAMINATION VITAL SIGNS: The patient's temperature is 98.5, blood pressure is 130/76, pulse 84, respirations 16. HEENT: She has a minor left facial droop. Tongue appears to be midline. NECK: Supple. LUNGS: Lungs sounded clear to auscultation bilaterally. HEART: Heart sounds are regular. S1, S2 are audible. ABDOMEN: Soft and nontender. EXTREMITIES: Her left arm may have slightly decreased tone. Peripheral pulses were intact. NEUROLOGIC: The patient was awake, alert, oriented. Muscle strength was roughly 2 to 3/5 in the left upper extremity, roughly 4/5 in the left lower extremity. FUNCTIONAL EXAM: The patient transfers with contact guard to min assist. ASSESSMENT: Right-sided cerebrovascular accident with left hemiparesis in a 27 - year-old female who was a smoker and was using oral contraceptives. PLAN: Integrate her into a comprehensive and therapeutic rehab program with the following goals: 1. Physical Therapy will work with the patient. They are going to work on functional transfer training, ambulation training with a walker. 2. Occupational Therapy will see the patient. They will work on her activities of daily living including toileting and toilet transfers. 3. Speech Therapy will see the patient, work on her dysarthria and screen her for any cognitive difficulties. 4. Lovenox for DVT prophylaxis. 5. Continue an aspirin a day and Lipitor for secondary stroke prevention. 6. Continue use of Prozac for neuronal recovery. 7. Continue use of nicotine patch for nicotine injection. 8. Family training as appropriate. 9. client services analyst will be closely involved to make sure that any services and equipment the patient requires are in place prior to discharge. 10. Home with appropriate services. ESTIMATED LENGTH OF STAY: 10 days. [id number]/[facility] #: [id number] [facility]
[2017-11-14] MEDS: Nicotine Patch Removal NOTE PATCH OFF SCH (22:36)
[2017-11-15] MEDS: Docusate CAP* 100 MG PO SCH ×2 (09:23→20:01)
[2017-11-15] MEDS: FLUoxetine CAP* 20 MG PO SCH (09:23)
[2017-11-15] MEDS: Aspirin EC TAB* 325 MG PO SCH (09:23)
[2017-11-15] MEDS: Nicotine PATCH 21 MG/24 HR* PATCH TRANSDERM SCH (09:23)
[2017-11-15] MEDS: Atorvastatin* 40 MG TAB PO SCH (17:13)
--- NOTE | 2017-11-15 17:16 | PN ---
Progress Note Date of Service: 11/15/17 Note: BANDAR ARMAS was visited. Therapy notes read and reviewed. She was observed ambulating with therapy. She looked ok. Has trouble with activities that need use of left arm. Current Medications: Active Medications Generic Name Dose Route Start Last Admin Trade Name Freq PRN Reason Stop Dose Admin Acetaminophen 650 mg 11/14/17 14:50 Tylenol Tab* PO Q6H PRN FEVER/PAIN Aspirin 325 mg 11/15/17 09:00 11/15/17 09:23 Ecotrin Ec Tab* PO 325 mg DAILY TAYLOR Administration Atorvastatin Calcium 40 mg 11/15/17 17:00 Lipitor* PO 1700 TAYLOR Docusate Sodium 100 mg 11/14/17 21:00 11/15/17 09:23 Colace Cap* PO Not Given BID TAYLOR Enoxaparin Sodium 40 mg 11/14/17 21:00 11/14/17 21:16 Lovenox(*) SUBCUT 40 mg Q24H TAYLOR Administration Fluoxetine HCl 20 mg 11/15/17 09:00 11/15/17 09:23 Prozac Cap* PO 20 mg DAILY TAYLOR Administration Magnesium Hydroxide 30 ml 11/14/17 14:50 Milk Of Magnesia Liq* PO Q6H PRN CONSTIPATION Nicotine 1 patch 11/15/17 08:00 11/15/17 09:23 Nicotine Patch 21 Mg/24 Hr* TRANSDERM 1 patch DAILY@0800 TAYLOR Administration Pharmacy Profile Note 1 note 11/14/17 21:00 11/14/17 22:36 Nicotine Patch Removal Note* PATCH OFF 1 note 2100 TAYLOR Administration Senna 2 tab 11/14/17 14:50 Senokot Tab* PO BEDTIME PRN CONSTIPATION Vital Signs: Vital Signs Temp Pulse Resp BP Pulse Ox 98.6 F 93 18 125/65 97 11/15/17 14:59 11/15/17 14:59 11/15/17 14:59 11/15/17 14:59 11/15/17 16:31 Exam: HEENT: mild CN VII LUNGS: Clear bilaterally HEART: Reg rhythm ABDOMEN: Soft NEUROLOGIC: alert. Muscle strength 3-4/5 left arm, 4/5 left leg Assessment/Plan: 1. Right CVA with Left hemiparesis: Received TPA. 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 ASA/Lipitor. OCs stopped, now has IUD 2. DVT Prophylaxis: Lovenox 3. Neuronal recovery: On Prozac 4. Tobacco use disorder: Nicotine patch 11/15/17 17:14
[2017-11-15] MEDS: Enoxaparin(*) 40 MG/0.4 ML SYR SUBCUT SCH (21:29)
[2017-11-15] MEDS: Nicotine Patch Removal NOTE PATCH OFF SCH (21:33)
[2017-11-16 06:53] LABS: ABS Basophils 0 10^3/ul (0-0.2); ABS Eosinophils 0.1 10^3/ul (0-0.6); ABS Lymphocytes 1.7 10^3/ul (1.0-4.8); ABS Monocytes 0.4 10^3/ul (0-0.8); ABS Neutrophils 2.1 10^3/ul (1.5-7.7); ABS Nucleated RBC 0 10^3/ul; Eosinophil % 3.2 % (0-6); Hematocrit 37 % (35-47); Hemoglobin 13.1 g/dl (12.0-16.0); Lymphocyte % 38.5 % (25-47); Mean Corpuscular HGB Conc 35 g/dl (31-36); Mean Corpuscular Hemoglobin 34 pg (27-31); Mean Corpuscular Volume 95 fL (80-97); Nucleated Red Blood Cells % 0; Platelet Count 188 10^3/ul (150-450); Red Blood Count 3.91 10^6/ul (4.0-5.4); Red Cell Distribution Width 13 % (10.5-15); White Blood Count 4.3 10^3/ul (3.5-10.8)
[2017-11-16 07:10] LABS: EGFR Non-African American 119.9 (>60)
[2017-11-16] MEDS: Nicotine PATCH 21 MG/24 HR* PATCH TRANSDERM SCH (09:40)
[2017-11-16] MEDS: Aspirin EC TAB* 325 MG PO SCH (09:41)
[2017-11-16] MEDS: FLUoxetine CAP* 20 MG PO SCH (09:41)
[2017-11-16] MEDS: Docusate CAP* 100 MG PO SCH ×2 (09:42→21:36)
--- NOTE | 2017-11-16 12:46 | PMRUTEAM ---
PMRU: Team Meeting Current Status: Nursing: Current Status Skin Deviations [Left Shoulder Bruise ] Skin Deviation Description [ - Left Shoulder] Physical Therapy: Current Status Bed Mobility Assistance Supervision Transfer Moblility Assistance Supervision,Contact Guard Assist Transfer/Bed Mobility None,Rolling Walker Recommended Devices Ambulation Assistance Supervision,Contact Guard Assist Ambulation Assistive Devices None,Rolling Walker Number of Feet Patient 300x3 Ambulated Stairs Assistance Contact Guard Assist Stairs Recommended Devices Two Rails Number of Stairs 20 Occupational Therapy: Current Status Upper Body Dressing Min Assist Lower Body Dressing Min Assist Bathing Supervision,Contact Guard Assist Toileting Contact Guard Assist Toilet Transfer Supervision Shower Transfer Supervision Eating Supervision Rec Therapy: Current Status Summary of Assessment and Pt. was open to conversation. Pt. was very Clinical Impression pleasant, cooperative and engaged in conversation. Pt.'s main passion is her 6 year old daughter and most all leisure activities in her life revolve around her. Pt. identified with interests and active involvement in them prior to admission . Pt. was open to continued leisure visits. Leisure activities were provided to her for her to engage in with her daughter while on the unit. Treatment Goals Pt. will engage in leisure activities while on the unit. Treatment Plan Provide RT services and encourage involvement. Social Work: Current Status Discharge Plan return home with support from friends and continued therapy as needed Potential for Family Training TBD Anticipated Discharge Home Destination Discharge With continued therapy and support from friends Goals: Physical Therapy: Initial Goals Bed Mobility Assistance Independent Transfer Mobility Assistance Independent Transfer/Bed Mobility None Recommended Devices Ambulation Independent Ambulation Recommended Devices None Ambulation Distance 600 Stairs Assistance Independent Stair Recommended Devices None Number of Stairs 20 Physical Therapy: Updated Goals Transfer/Bed Mobility None,Rolling Walker Recommended Devices Occupational Therapy: Initial Goals Goals to be Completed in (Days 5-7 ) Upper Body Bathing Routine Modified Independent with Lower Body Bathing Routine Modified Independent with Upper Body Dressing Routine Independent Lower Body Dressing Routine Independent Toilet Hygeine and Clothing Independent Management Routine Toilet Transfer Routine Independent Tub Transfer Routine Modified Independent with Functional Transfers for ADL Independent Grooming Routine Independent Feeding Routine Independent Light Housekeeping Tasks Minimal Contact Assist Speech: Goals Speech Goal 1 Motor Speech Goal 1 Comments Long-Term Goal: Patient will demonstrated 90% symmetrical rate and range of motion of buccal and labial retractors and elevators, I'ly. Short-Term Goal: Patient will demonstrated 60% symmetrical rate and range of motion of buccal and labial retractors, and 50% symmetrical rate and range of motion of buccal and labial elevators, given skilled instruction and moderate cueing. Speech Goal 2 Swallow Speech Goal 2 Comments Long-Term Goal: Patient will tolerate least restrictive diet consistencies w/ no stasis or clinical s/s aspiration Short Term Goals: 1) STG: Pt will use compensatory strategies to tolerate regular solid consistency w/ no difficulty or Left-sided oral residue. 2) STG: Pt will use compensatory strategies to tolerate thin liquid w/ Left-sided labial leakage. Social Work: Goals Discharge Plan return home with support from friends and continued therapy as needed Potential for Family Training TBD Anticipated Discharge Home Destination Discharge With continued therapy and support from friends Care Plan: Care Plan ADL's - Improve/Maintain Start: 11/14/17 19:43 Freq: [email or web address]@1200 Status: Active Target: Protocol: Activity Type Activity Date Activity User E-Sign Co-Sign Detail Recorded Client Recorded Date Recorded By Document 11/14/17 19:43 [id number] 11/14/17 19:44 [id number] 11/14/17 19:43 PMRU Outcome: ADL's/ADL Transfers Orders/Interventions Occupational Therapy Evaluation & Treatment Device Yes Patient to receive OT 5x/wk for 60-120 Therex min/day Self Care Management Group Therapy Neuromuscular ReEducation UE/LE ADL's with Assist Yes ADL Transfers with Assist Yes Toileting: Transfers,Clothing Management Yes ,Hygeine w/Assist Light Kitchen/Laundry w/Assist Yes Progression Toward Outcome/Goals Progressing Coping/Psych-Improve/Maintain Start: 11/14/17 13:18 Freq: DAILY@1200 Status: Active Target: Protocol: Activity Type Activity Date Activity User E-Sign Co-Sign Detail Recorded Client Recorded Date Recorded By Document 11/16/17 00:59 [email or web address] 11/16/17 01:00 [id number] 11/16/17 00:59 PMRU Outcome: Coping/Psychosocial Coping Outcome/Goals Verbalization of Acceptance of Rehab Admit Utilization of Appropriate Problem Solving Techniques Willingness to Participate in Treatment Plan and Basic Needs Utilization of Available Support Systems Psychosocial Outcome/Goals Maintain/ Improve Emotional Health Demonstrates Knowledge of Healthy Coping Mechanisms Available Cooperate/ Participate in Plan Progression Toward Outcome/Goals - Progressing Coping Progression Toward Outcome/Goals - Progressing Psychosocial DVT Prophylaxis- Improve/Maintain Start: 11/14/17 13:18 Freq: DAILY@1200 Status: Active Target: Protocol: Activity Type Activity Date Activity User E-Sign Co-Sign Detail Recorded Client Recorded Date Recorded By Document 11/16/17 00:59 [id number] [email or web address] 11/16/17 01:00 [id number] 11/16/17 00:59 PMRU Outcome: DVT Prophylaxis Outcome/Goals Remains Free of DVT Complies with DVT Prophylaxis /Treatment Progression Toward Outcome/Goals Progressing Discharge Planning - Improve/Maintain Start: 11/14/17 13:18 Freq: DAILY@1200 Status: Active Target: Protocol: Activity Type Activity Date Activity User E-Sign Co-Sign Detail Recorded Client Recorded Date Recorded By Document 11/15/17 00:19 [id number] [id number] 11/15/17 00:20 [id number] 11/15/17 00:19 PMRU Outcome: Discharge Planning Update Patient Family No Outcome/Goals Demonstrates Understanding of Discharge Plan Education-Improve/Maintain Start: 11/14/17 13:18 Freq: DAILY@1200 Status: Active Target: Protocol: Activity Type Activity Date Activity User E-Sign Co-Sign Detail Recorded Client Recorded Date Recorded By Document 11/16/17 00:59 [id number] [email or web address] 11/16/17 01:00 [email or web address] 11/16/17 00:59 PMRU Outcome: Education Outcome/Goals Demonstrates Skills Encourage Questions Progression Toward Outcome/Goals Progressing /GI-Improve/Maintain Start: 11/14/17 13:18 Freq: DAILY@1200 Status: Active Target: Protocol: Activity Type Activity Date Activity User E-Sign Co-Sign Detail Recorded Client Recorded Date Recorded By Document 11/16/17 00:59 [id number] [email or web address] 11/16/17 01:00 [id number] 11/16/17 00:59 PMRU Outcome: Genitourinary/ Gastrointestinal Genitourinary- Outcome/Goals Remain Free of Hospital- Acquired UTI Gastrointestinal-Outcome/Goals Prevent Constipation Laxatives as Ordered Progression Toward Outcome/Goals - Progressing Progression Toward Outcome/Goals - GI Progressing Medication Administration Start: 11/14/17 13:18 Freq: DAILY@1200 Status: Active Target: Protocol: Activity Type Activity Date Activity User E-Sign Co-Sign Detail Recorded Client Recorded Date Recorded By Document 11/16/17 00:59 [id number] 11/16/17 01:00 [id number] 11/16/17 00:59 PMRU Outcome: Medication Administration Assess Patient Knowledge/Teach Med Yes Education for all Meds Outcome/Goals Patient Independent with Medication Administration at Home Demonstrates Understanding Progression Towards Outcome/Goals Progressing Is Patient Going Home on Lovenox? No Neurological- Improve/Maintain Start: 11/14/17 13:18 Freq: DAILY@1200 Status: Active Target: Protocol: Activity Type Activity Date Activity User E-Sign Co-Sign Detail Recorded Client Recorded Date Recorded By Document 11/16/17 00:59 [id number] 11/16/17 01:00 [id number] 11/16/17 00:59 PMRU Outcome: Neurological Weakness/Aphasia Weakness Left Side Outcome/Goals Improve Neurological Status Prevent Avoidable Neurological Decline Maintain/ Improve Strength/ROM Progression Toward Outcome/Goals Progressing Safety- Improve/Maintain Start: 11/14/17 13:18 Freq: DAILY@1200 Status: Active Target: Protocol: Activity Type Activity Date Activity User E-Sign Co-Sign Detail Recorded Client Recorded Date Recorded By Document 11/16/17 00:59 [id number] [email or web address] 11/16/17 01:00 [id number] 11/16/17 00:59 PMRU Outcome: Safety Outcome/Goals Remain Free of Injury or Harm Prevent Falls/ Injury Progression Toward Outcome/Goals Progressing Medicine Note: Length of Stay: 4 days Anticipated Discharge Destination: Home Tentative Discharge Date: November 20, 2017 Discharged to: home
--- NOTE | 2017-11-16 15:58 | PN ---
Progress Note Date of Service: 11/16/17 Note: BANDAR ARMAS was visited. Therapy notes read and reviewed. She was discussed in interdisciplinary plan of care rounds. Doing well. She is concerned about driving. Current Medications: Active Medications Generic Name Dose Route Start Last Admin Trade Name Freq PRN Reason Stop Dose Admin Acetaminophen 650 mg 11/14/17 14:50 11/16/17 14:06 Tylenol Tab* PO 650 mg Q6H PRN Administration FEVER/PAIN Aspirin 325 mg 11/15/17 09:00 11/16/17 09:41 Ecotrin Ec Tab* PO 325 mg DAILY TAYLOR Administration Atorvastatin Calcium 40 mg 11/15/17 17:00 11/15/17 17:13 Lipitor* PO 40 mg 1700 TAYLOR Administration Docusate Sodium 100 mg 11/14/17 21:00 11/16/17 09:42 Colace Cap* PO Not Given BID TAYLOR Enoxaparin Sodium 40 mg 11/14/17 21:00 11/15/17 21:29 Lovenox(*) SUBCUT 40 mg Q24H TAYLOR Administration Fluoxetine HCl 20 mg 11/15/17 09:00 11/16/17 09:41 Prozac Cap* PO 20 mg DAILY TAYLOR Administration Magnesium Hydroxide 30 ml 11/14/17 14:50 Milk Of Magnesia Liq* PO Q6H PRN CONSTIPATION Nicotine 1 patch 11/15/17 08:00 11/16/17 09:40 Nicotine Patch 21 Mg/24 Hr* TRANSDERM 1 patch DAILY@0800 TAYLOR Administration Pharmacy Profile Note 1 note 11/14/17 21:00 11/15/17 21:33 Nicotine Patch Removal Note* PATCH OFF 1 note 2100 TAYLOR Administration Senna 2 tab 11/14/17 14:50 Senokot Tab* PO BEDTIME PRN CONSTIPATION Vital Signs: Vital Signs Temp Pulse Resp BP Pulse Ox 97.6 F 74 16 103/56 97 11/16/17 05:24 11/16/17 05:24 11/16/17 05:24 11/16/17 05:24 11/16/17 05:24 Lab Results: Laboratory Results - last 24 hr 11/16/17 11/16/17 06:23 06:23 WBC 4.3 RBC 3.91 L Hgb 13.1 Hct 37 MCV 95 MCH 34 H MCHC 35 RDW 13 Plt Count 188 MPV 8.0 Neut % (Auto) 49.2 Lymph % (Auto) 38.5 Lawrence % (Auto) 8.8 H Eos % (Auto) 3.2 Baso % (Auto) 0.3 Absolute Neuts (auto) 2.1 Absolute Lymphs (auto) 1.7 Absolute Monos (auto) 0.4 Absolute Eos (auto) 0.1 Absolute Basos (auto) 0 Absolute Nucleated RBC 0 Nucleated RBC % 0 Sodium 139 Potassium 4.0 Chloride 106 Carbon Dioxide 26 Anion Gap 7 BUN 17 Creatinine 0.60 Est GFR ( Amer) 154.2 Est GFR (Non-Af Amer) 119.9 BUN/Creatinine Ratio 28.3 H Glucose 95 Calcium 9.4 Total Bilirubin 0.60 AST 58 H ALT 98 H Alkaline Phosphatase 67 Total Protein 6.6 Albumin 4.0 Globulin 2.6 Albumin/Globulin Ratio 1.5 Exam: HEENT: face appears symmetric LUNGS: Clear bilaterally HEART: Reg rhythm ABDOMEN: Soft NEUROLOGIC: alert. Muscle strength 4/5 left arm, 4+/5 left leg Assessment/Plan: 1. Right CVA with Left hemiparesis: Received TPA. PT/OT/[employer]. ASA/Lipitor. OCs stopped, now has IUD 2. DVT Prophylaxis: Lovenox 3. Neuronal recovery: On Prozac 4. Tobacco use disorder: Nicotine patch 11/16/17 15:58
[2017-11-16] MEDS: Atorvastatin* 40 MG TAB PO SCH (17:18)
[2017-11-16] MEDS: Enoxaparin(*) 40 MG/0.4 ML SYR SUBCUT SCH (21:36)
[2017-11-16] MEDS: Hydrocortisone 1% CREAM* 30 GM TUBE TOPICAL SCH (21:38)
[2017-11-16] MEDS: Nicotine Patch Removal NOTE PATCH OFF SCH (21:39)
[2017-11-17] MEDS: FLUoxetine CAP* 20 MG PO SCH (09:24)
[2017-11-17] MEDS: Hydrocortisone 1% CREAM* 30 GM TUBE TOPICAL SCH ×2 (09:24→21:30)
[2017-11-17] MEDS: Docusate CAP* 100 MG PO SCH ×2 (09:24→21:32)
[2017-11-17] MEDS: Nicotine PATCH 21 MG/24 HR* PATCH TRANSDERM SCH (09:24)
[2017-11-17] MEDS: Aspirin EC TAB* 325 MG PO SCH (09:26)
--- NOTE | 2017-11-17 12:41 | PN ---
Progress Note Date of Service: 11/17/17 Note: BANDAR ARMAS was visited. Therapy notes read and reviewed. She has some local skin irritation at the left elbow from tape/tegaderm from an IV site. Otherwise seems ok Current Medications: Active Medications Generic Name Dose Route Start Last Admin Trade Name Freq PRN Reason Stop Dose Admin Acetaminophen 650 mg 11/14/17 14:50 11/16/17 14:06 Tylenol Tab* PO 650 mg Q6H PRN Administration FEVER/PAIN Aspirin 325 mg 11/15/17 09:00 11/17/17 09:26 Ecotrin Ec Tab* PO 325 mg DAILY TAYLOR Administration Atorvastatin Calcium 40 mg 11/15/17 17:00 11/16/17 17:18 Lipitor* PO 40 mg 1700 TAYLOR Administration Docusate Sodium 100 mg 11/14/17 21:00 11/17/17 09:24 Colace Cap* PO Not Given BID TAYLOR Enoxaparin Sodium 40 mg 11/14/17 21:00 11/16/17 21:36 Lovenox(*) SUBCUT 40 mg Q24H TAYLOR Administration Fluoxetine HCl 20 mg 11/15/17 09:00 11/17/17 09:24 Prozac Cap* PO 20 mg DAILY TAYLOR Administration Hydrocortisone 1 applic 11/16/17 21:00 11/17/17 09:24 Hytone Cream 1%* TOPICAL 1 applic BID TAYLOR Administration Magnesium Hydroxide 30 ml 11/14/17 14:50 Milk Of Magnesia Liq* PO Q6H PRN CONSTIPATION Nicotine 1 patch 11/15/17 08:00 11/17/17 09:24 Nicotine Patch 21 Mg/24 Hr* TRANSDERM 1 patch DAILY@0800 [facility] Administration Pharmacy Profile Note 1 note 11/14/17 21:00 11/16/17 21:39 Nicotine Patch Removal Note* PATCH OFF 1 note 2100 TAYLOR Administration Senna 2 tab 11/14/17 14:50 Senokot Tab* PO BEDTIME PRN CONSTIPATION Vital Signs: Vital Signs Temp Pulse Resp BP Pulse Ox 97.9 F 73 18 121/62 99 11/17/17 06:16 11/17/17 06:16 11/17/17 08:00 11/17/17 06:16 11/17/17 08:00 Exam: HEENT: mild left facial weakness LUNGS: Clear bilaterally HEART: Reg rhythm ABDOMEN: Soft NEUROLOGIC: alert. Muscle strength 4/5 left arm, 4+/5 left leg Assessment/Plan: 1. Right CVA with Left hemiparesis: Received TPA. 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 OCs stopped, now has IUD 2. DVT Prophylaxis: Lovenox 3. Neuronal recovery: On Prozac 4. Tobacco use disorder: Nicotine patch 11/17/17 12:41
[2017-11-17] MEDS: Atorvastatin* 40 MG TAB PO SCH (16:57)
[2017-11-17] MEDS: Enoxaparin(*) 40 MG/0.4 ML SYR SUBCUT SCH (21:28)
[2017-11-17] MEDS: Nicotine Patch Removal NOTE PATCH OFF SCH (21:32)
--- NOTE | 2017-11-18 08:13 | PN ---
Progress Note Date of Service: 11/18/17 Note: BANDAR ARMAS was visited. Therapy notes read and reviewed. She thinks she is ready for discharge tomorrow. She is a little apprehensive Current Medications: Active Medications Generic Name Dose Route Start Last Admin Trade Name Freq PRN Reason Stop Dose Admin Acetaminophen 650 mg 11/14/17 14:50 11/16/17 14:06 Tylenol Tab* PO 650 mg Q6H PRN Administration FEVER/PAIN Aspirin 325 mg 11/15/17 09:00 11/17/17 09:26 Ecotrin Ec Tab* PO 325 mg DAILY TAYLOR Administration Atorvastatin Calcium 40 mg 11/15/17 17:00 11/17/17 16:57 Lipitor* PO 40 mg 1700 TAYLOR Administration Docusate Sodium 100 mg 11/14/17 21:00 11/17/17 21:32 Colace Cap* PO Not Given BID TAYLOR Enoxaparin Sodium 40 mg 11/14/17 21:00 11/17/17 21:28 Lovenox(*) SUBCUT 40 mg Q24H TAYLOR Administration Fluoxetine HCl 20 mg 11/15/17 09:00 11/17/17 09:24 Prozac Cap* PO 20 mg DAILY TAYLOR Administration Hydrocortisone 1 applic 11/16/17 21:00 11/17/17 21:30 Hytone Cream 1%* TOPICAL 1 applic BID TAYLOR Administration Magnesium Hydroxide 30 ml 11/14/17 14:50 Milk Of Magnesia Liq* PO Q6H PRN CONSTIPATION Nicotine 1 patch 11/15/17 08:00 11/17/17 09:24 Nicotine Patch 21 Mg/24 Hr* TRANSDERM 1 patch DAILY@0800 [facility] Administration Pharmacy Profile Note 1 note 11/14/17 21:00 11/17/17 21:32 Nicotine Patch Removal Note* PATCH OFF 1 note 2100 TAYLOR Administration Senna 2 tab 11/14/17 14:50 Senokot Tab* PO BEDTIME PRN CONSTIPATION Vital Signs: Vital Signs Temp Pulse Resp BP Pulse Ox 98.1 F 66 18 129/68 97 11/18/17 06:34 11/18/17 06:34 11/18/17 06:34 11/18/17 06:34 11/18/17 06:34 Exam: HEENT: mild left facial weakness LUNGS: Clear bilaterally HEART: Reg rhythm ABDOMEN: Soft NEUROLOGIC: alert. Muscle strength 4/5 left arm, 4+/5 left leg Assessment/Plan: 1. Right CVA with Left hemiparesis: Received TPA. 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 OCs stopped, now has IUD 2. DVT Prophylaxis: Lovenox 3. Neuronal recovery: On Prozac 4. Tobacco use disorder: Nicotine patch 11/18/17 08:13
[2017-11-18] MEDS: Aspirin EC TAB* 325 MG PO SCH (08:44)
[2017-11-18] MEDS: FLUoxetine CAP* 20 MG PO SCH (08:44)
[2017-11-18] MEDS: Docusate CAP* 100 MG PO SCH ×2 (08:45→21:07)
[2017-11-18] MEDS: Hydrocortisone 1% CREAM* 30 GM TUBE TOPICAL SCH ×2 (08:48→21:06)
[2017-11-18] MEDS: Nicotine PATCH 21 MG/24 HR* PATCH TRANSDERM SCH (08:49)
[2017-11-18] MEDS: Atorvastatin* 40 MG TAB PO SCH (17:21)
[2017-11-18] MEDS: Enoxaparin(*) 40 MG/0.4 ML SYR SUBCUT SCH (21:03)
[2017-11-18] MEDS: Nicotine Patch Removal NOTE PATCH OFF SCH (21:07)
[2017-11-19 06:47] VITALS: BP 116/67
[2017-11-19] MEDS: Nicotine PATCH 21 MG/24 HR* PATCH TRANSDERM SCH (09:05)
[2017-11-19] MEDS: Aspirin EC TAB* 325 MG PO SCH (09:06)
[2017-11-19] MEDS: FLUoxetine CAP* 20 MG PO SCH (09:06)
[2017-11-19] MEDS: Hydrocortisone 1% CREAM* 30 GM TUBE TOPICAL SCH (09:06)
[2017-11-19] MEDS: Docusate CAP* 100 MG PO SCH (09:06)
--- NOTE | 2017-11-20 22:02 | DS ---
CC: Dr. Nkechi Nugent * DISCHARGE SUMMARY: DATE OF ADMISSION: 11/14/17 DATE OF DISCHARGE: 11/19/17 DISCHARGE DIAGNOSES: 1. Right-sided cerebrovascular accident with left-sided weakness. 2. Migraine headaches. 3. Nicotine addiction. 4. Status post tPA administration. HISTORY OF PRESENT ILLNESS: For complete history of the events leading up to her rehab state, please see the history and physical dictated by me on 11/14/17. While on the rehab unit, the patient remained medically stable. Her blood pressure was in good control. She did not use any cigarettes. She was maintained on Prozac for neuronal recovery. The patient otherwise was medically stable. She had good return of her motor strength. The patient was seen by both Physical and Occupational Therapy as well as Speech Therapy. She made good gains with all disciplines. With physical therapy at the time of admission, the patient required contact guard to do her transfers, she was able to ambulate with contact guard over 300 feet. With occupational therapy at the time of admission, the patient required contact guard to do a toilet transfer, contact guard for toileting, min assist for upper body dressing and min assist for lower body dressing. By the time of discharge, the patient was independent of transfers, independent ambulating 600 feet without a walker, independent ambulating 20 steps with and without railing, independent in her activities of daily living. The patient was discharged home 11/19/17. DISCHARGE DIET: Regular. DISCHARGE MEDICATIONS: Included: 1. Aspirin 325 mg orally daily. 2. Prozac 20 mg daily. 3. Lipitor 40 mg daily. 4. Nicotine patch 21 mg over 24 hours, applying the patch in the morning, taking it off in the evening. SERVICES AFTER DISCHARGE: The patient will do outpatient physical therapy at the [facility] beginning 11/26/17. She will also follow up with her primary care doctor, Dr. Nkechi Nugent. [id number]/[facility] #: [id number] [facility]ITALRamiro
== END 2017-11-19 11:00 | disposition home or self-care (01) | DRG 58 ==
LOC: PMRU 12:44
PROVIDERS: ADMIT Physical Medicine & Rehabilitation; ATTEND Physical Medicine & Rehabilitation
PROC: F07Z5ZZ Bed Mobility Treatment (ICD-10-PCS; principal; 2017-11-14)
PROC: F07Z9ZZ Gait Training/Functional Ambulation Treatment (ICD-10-PCS; 2017-11-14)
PROC: F07Z8ZZ Transfer Training Treatment (ICD-10-PCS; 2017-11-14)
PROC: F08Z0ZZ Bathing/Showering Techniques Treatment (ICD-10-PCS; 2017-11-14)
PROC: F08Z1ZZ Dressing Techniques Treatment (ICD-10-PCS; 2017-11-14)
PROC: F08Z3ZZ Feeding/Eating Treatment (ICD-10-PCS; 2017-11-14)
DX: I69.354 Hemiplegia and hemiparesis following cerebral infarction affecting left non-dominant side (principal); G43.909 Migraine, unspecified, not intractable, without status migrainosus; F17.210 Nicotine dependence, cigarettes, uncomplicated; Z79.3 Long term (current) use of hormonal contraceptives; Z79.899 Other long term (current) drug therapy
CPT/HCPCS: 36415; 80053; 85025; A9270-GY; J1650

== ENCOUNTER 2018-11-23 11:33 | Emergency (ER) | payer OTHER ==
[2018-11-23 12:26] VITALS: BP 118/83
--- NOTE | 2018-11-23 13:26 | UC ---
Skin Complaint HPI - HPI Summary HPI Summary: patient shaved her bikini area and now has a quarter size painful red area on the lower abdomen - History of Current Complaint Chief Complaint: UCSkin Time Seen by Provider: 11/23/18 12:48 Stated Complaint: SKIN COMPLAINT Hx Obtained From: Patient Hx Last Menstrual Period: IUD ?: No Onset/Duration: Sudden Onset, Lasting Days Skin Exposure Onset/Duration: Days Ago Timing: Constant Onset Severity: Mild Current Severity: Severe Pain Intensity: 8 Character: Pain, Redness, Raised Aggravating Factor(s): Humidity, Touch Alleviating Factor(s): Nothing - Allergy/Home Medications Allergies/Adverse Reactions: Allergies Allergy/AdvReac Type Severity Reaction Status Date / Time No Known Allergies Allergy Verified 11/23/18 12:19 PMH/Surg Hx/FS Hx/Imm Hx Previously Healthy: Yes Other History Of: Negative For: Anticoagulant Therapy - Surgical History Surgical History: Yes Surgery Procedure, Year, and Place: C section 06/29/11 - Family History Known Family History: Positive: None, Hypertension - Social History Alcohol Use: Rare Substance Use Type: None Smoking Status (MU): Former Smoker Type: Cigarettes Amount Used/How Often: 1 ppd Length of Time of Smoking/Using Tobacco: 10 years Have You Smoked in the Last Year: No When Did the Patient Quit Smoking/Using Tobacco: 2018 Household Exposure Type: Cigarettes - Immunization History Most Recent Influenza Vaccination: none Most Recent Pneumonia Vaccination: never Review of Systems All Other Systems Reviewed And Are Negative: Yes Skin: Positive: Other - abscess Is Patient Immunocompromised?: No Physical Exam Triage Information Reviewed: Yes Appearance: Well-Appearing, Well-Nourished, Pain Distress Vital Signs: Initial Vital Signs Temp 97.6 F 11/23/18 12:20 Pulse 78 11/23/18 12:20 Resp 17 11/23/18 12:20 BP 118/83 11/23/18 12:20 Pulse Ox 100 11/23/18 12:20 Vital Signs Reviewed: Yes Eye Exam: Normal ENT Exam: Normal Dental Exam: Normal Neck exam: Normal Respiratory Exam: Normal Cardiovascular Exam: Normal Abdominal Exam: Normal Bowel Sounds: Positive: Present Musculoskeletal Exam: Normal Neurological Exam: Normal Psychological Exam: Normal Skin: Positive: Significant Lesion(s) - abscess on lower abdomen Course/Dx - Course Course Of Treatment: hx obtained, exam performed ,meds reviewed, treated for small abscess on lower abdomen - Differential Diagnoses - Skin Complaint Differential Diagnoses: Abscess - Diagnoses Provider Diagnosis: Abscess Discharge - Sign-Out/Discharge Documenting (check all that apply): Patient Departure All imaging exams completed and their final reports reviewed: No Studies - Discharge Plan Condition: Stable Disposition: HOME Prescriptions: Cephalexin CAP* [Keflex CAP*] 500 mg PO TID #21 cap Patient Education Materials: Abscess (ED) Referrals: Jeferson Lu DO [Primary Care Provider] - Additional Instructions: 1. Take the medication as prescribed. 2. Hot compresses or warm water soaks frequently for the next few days 3. Follow up if not improving. - Billing Disposition and Condition Condition: STABLE Disposition: Home
== END 2018-11-23 13:26 | disposition home or self-care (01) ==
LOC: UCCORT 11:33
DX: K65.1 Peritoneal abscess (principal); Z87.891 Personal history of nicotine dependence
CPT/HCPCS: 99212; G0463

== ENCOUNTER 2019-04-06 10:26 | Emergency (ER) | payer OTHER ==
[2019-04-06 11:48] VITALS: BP 135/88
--- NOTE | 2019-04-06 12:10 | UC ---
UC General HPI - HPI Summary HPI Summary: per triage, Bee sting to left second toe one week ago. Continued pain "like it' s waking up from having fallen asleep" and mild swelling. Discoloration for two to three days. Denies similar previous episodes and does not recall ever being stung by a bee before. Has tried hydrocortisone cream, ibuprofen, ice packs, and epsom salts soaks without improvement. Denies fever/chills. CMS intact. Skin is same temperature as surrounding uneffected skin. pt notes it was a wasp. it was very swollen right after. no joint pain. no fever, sob, n/v. - History of Current Complaint Chief Complaint: [facility] Stated Complaint: LT FOOT-3RD TOE INJURY Time Seen by Provider: 04/06/19 11:52 Hx Obtained From: Patient Hx Last Menstrual Period: IUD Onset/Duration: Gradual Onset Timing: Constant Pain Intensity: 4 - Allergy/Home Medications Allergies/Adverse Reactions: Allergies Allergy/AdvReac Type Severity Reaction Status Date / Time No Known Allergies Allergy Verified 04/06/19 11:40 Home Medications: Home Medications Hydrocortisone 1% CREAM* [Hytone Cream 1%*] 1 applic TOPICAL QID PRN 04/06/19 [ History Confirmed 04/06/19] Ibuprofen TAB* [Advil TAB*] 800 mg PO Q8H PRN 04/06/19 [History Confirmed ] Lansoprazole CAP (NF) [Prevacid CAP (NF)] 15 mg PO DAILY 04/06/19 [History Confirmed 04/06/19] Otc "Allergy Relief" 1 tab PO DAILY 04/06/19 [History] PMH/Surg Hx/FS Hx/Imm Hx GI/ History: Gastroesophageal Reflux 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 Other History Of: Negative For: Anticoagulant Therapy - Surgical History Surgical History: Yes Surgery Procedure, Year, and Place: C section 06/29/11 - Family History Known Family History: Positive: None, Hypertension - Social History Alcohol Use: Rare Substance Use Type: None Smoking Status (MU): Former Smoker Type: Cigarettes Amount Used/How Often: 1 ppd Length of Time of Smoking/Using Tobacco: 1 PPD x 10 Years Have You Smoked in the Last Year: No When Did the Patient Quit Smoking/Using Tobacco: 2018 Household Exposure Type: Cigarettes - Immunization History Most Recent Influenza Vaccination: none Most Recent Tetanus Shot: 10/23/15 Most Recent Pneumonia Vaccination: never Review of Systems All Other Systems Reviewed And Are Negative: No Constitutional: Negative: Fever, Chills Skin: Positive: Rash - l toe Musculoskeletal: Positive: Edema - l toe. Negative: Decreased ROM Physical Exam Triage Information Reviewed: Yes Appearance: Well-Appearing Vital Signs: Initial Vital Signs Temp 98.6 F 04/06/19 11:42 Pulse 86 04/06/19 11:42 Resp 16 04/06/19 11:42 BP 135/88 04/06/19 11:42 Pulse Ox 100 04/06/19 11:42 Vital Signs Reviewed: Yes Neurological: Positive: Alert Psychological: Positive: Age Appropriate Behavior Skin Exam: Normal, Other - L Foot= second toe with mild swelling. dorsum of digit with 4 small scabs(?stings) and mild erythems with sting sites being a purple color as well. toe has gross s/v/m function. no streaking. rest of foot is unremarkable. Course/Dx - Differential Dx - Multi-Symptom Differential Diagnoses: Other - will tx for the local reaction and secondary skin infection with close f/u. - Diagnoses Provider Diagnosis: Infected insect bite or sting Discharge ED - Sign-Out/Discharge Documenting (check all that apply): Patient Departure All imaging exams completed and their final reports reviewed: No Studies - Discharge Plan Condition: Stable Disposition: HOME Prescriptions: Cephalexin CAP* [Keflex CAP*] 500 mg PO TID 7 Days #21 cap predniSONE TAB* [Deltasone 20 MG TAB*] 40 mg PO DAILY 3 Days #6 tab Patient Education Materials: Cellulitis (ED), Insect Bite or Sting (ED) Referrals: Jeferson Lu DO [Primary Care Provider] - 3 Days - Billing Disposition and Condition Condition: STABLE Disposition: Home
== END 2019-04-06 12:20 | disposition home or self-care (01) ==
LOC: UCCORT 10:26
DX: T63.441A Toxic effect of venom of bees, accidental (unintentional), initial encounter (principal); M79.89 Other specified soft tissue disorders; Y92.9 Unspecified place or not applicable; Z86.73 Personal history of transient ischemic attack (TIA), and cerebral infarction without residual deficits; Z87.891 Personal history of nicotine dependence
CPT/HCPCS: 99212; G0463